=== PATIENT | female | born 1940 | race Caucasian/White ===

== ENCOUNTER 2021-03-19 12:32 | Outpatient (REF) | payer MEDICARE, SELFPAY ==
[2021-03-19 13:53] LABS: MANUAL DIFF FLAG NO
[2021-03-19 13:58] LABS: Basophils Percent Auto 0.5 % (0-2); Eosinophils Absolute Auto 0.1 X10*3/uL (0.0-0.4); Eosinophils Percent Auto 2.4 % (0-4); Hematocrit 41.7 % (37-47); Hemoglobin 14.1 g/dl (12.0-16.0); Imm Gran Abs Auto 0.01 X10*3/uL (0.00-0.03); Imm Gran Pct Auto 0.2 % (0.0-0.4); Lymphocytes Percent Auto 35.7 % (20-40); Mean Corpuscular HGB Conc 33.8 g/dl (31.0-35.0); Mean Corpuscular Hemoglobin 31.1 pg (27.0-33.0); Mean Corpuscular Volume 92.1 fL (80-98); Mean Platelet Volume 11.9 fL (9.4-12.3); Monocytes Absolute Auto 0.5 X10*3/uL (0.1-1.2); Monocytes Percent Auto 9.8 % (2-11); Neutrophils Absolute Auto 2.8 X10*3/uL (2.0-8.3); Neutrophils Percent Auto 51.4 % (45-73); Platelet Count 167 X10*3/uL (160-400); Red Blood Count 4.53 X10*6/uL (4.20-5.50); Red Cell Distribution Width 13.1 % (11.0-16.0); White Blood Count 5.5 X10*3/uL (4.8-10.8)
[2021-03-19 14:06] LABS: Estimated Average Glucose 160 mg/dL; Hemoglobin A1c % 7.2 %
[2021-03-19 14:30] LABS: Alanine Aminotransferase 23 U/L (0-31); Albumin Level 4.4 g/dL (3.5-5.0); Alkaline Phosphatase 89 U/L (39-117); Anion Gap 16 (12-20); Aspartate Amino Transferase 19 U/L (5-31); Bilirubin Total 0.7 mg/dL (0.0-1.0); Blood Urea Nitrogen 12 mg/dL (9-16); Calcium 8.9 mg/dL (8.4-10.2); Carbon Dioxide 23 mmol/L (22-29); Chloride 104 mmol/L (96-108); Cholesterol 263 mg/dL; Estimated Glomerular Filt Rate > 60; Glucose Random 124 mg/dL (60-115); HDL Cholesterol 82 mg/dL; LDL Cholesterol Calculated 165 mg/dl; Potassium 4.7 mmol/L (3.3-5.1); Sodium 138 mmol/L (135-145); Total Protein 7.1 g/dL (6.5-8.0); Triglycerides 84 mg/dL
[2021-03-19 14:52] LABS: Vitamin D 25-OH Total 43.9 ng/mL (>30)
== END 2021-03-19 12:33 | disposition home or self-care (01) ==
LOC: HO.LAB 12:32
PROVIDERS: PCP Internal Medicine; Visit Provider Nurse Practitioner Family
DX: E03.8 Other specified hypothyroidism (principal); I10 Essential (primary) hypertension; E78.5 Hyperlipidemia, unspecified; E55.9 Vitamin D deficiency, unspecified
CPT/HCPCS: 36415; 80053; 80061; 82306; 83036; 83525; 84443; 85025

== ENCOUNTER 2024-09-20 08:40 | Emergency (ER) | payer MEDICARE, SELFPAY ==
--- NOTE | ~2024-09-20 | CT_ITS ---
EXAMINATION: CT ABDOMEN AND PELVIS WITH CONTRAST CLINICAL INFORMATION: Right lower quadrant pain COMPARISON: None available. TECHNIQUE: Multidetector volumetric images were obtained from the superior aspect of the liver through the pubic symphysis following administration 85 mL of Omnipaque 350 intravenous contrast without reported immediate complications. Sagittal and coronal reformatted images were obtained on the technologist's workstation. Oral contrast: No This CT examination was performed using dose optimization techniques as appropriate, variously including the following: *Automated exposure control *Adjustment of mA and/or kV according to patient size (this includes techniques or standardized protocols for targeted exams where dose is matched to indication/reason for exam; i.e. extremities or head) *Use of iterative reconstruction technique DLP: 624 mGy-cm FINDINGS: LUNG BASES: No acute airspace disease in the included lung bases. LIVER, GALLBLADDER, AND BILIARY TREE: Liver measures 18 cm. There is a 1.5 cm hypodensity in the dome of the right hepatic lobe no fully evaluated. The main portal vein and hepatic veins and intrahepatic portion of the IVC are patent. No pericholecystic fluid collection or gallbladder wall thickening. No intrahepatic or extrahepatic biliary ductal dilatation. PANCREAS: No focal pancreatic mass. No peripancreatic fluid collection. No main pancreatic ductal dilatation. There is volume loss with the fatty density in the head and uncinate process. SPLEEN: 9 cm. No focal mass. Small accessory spleen. ADRENAL GLANDS: No nodular lesions KIDNEYS AND URETERS: 2.2 cm exophytic cyst in the lateral midportion/lower junction of the left kidney. No hydronephrosis in either kidney. No gross renal mass. Subcentimeter cystic lesion in the right kidney. BLADDER: Fluid-filled. GASTROINTESTINAL TRACT: Appendix is normal. Abundant stool within the large intestine. Numerous diverticula throughout the left hemicolon. Collapsed appearance of the transverse colon and descending colon. No pericolonic edema pattern. No peripheral enhancing fluid collection, peritoneal cavity. No intestinal obstruction pattern. No ascites. No pneumoperitoneum. Nonspecific mesenteric edema pattern. Hiatal hernia, small volume.. ABDOMINAL WALL: Moderate to large volume fat-containing umbilical/periumbilical hernia. LYMPH NODES: Nonspecific prominent lymph nodes in the mesentery and retroperitoneum. VASCULAR: No aneurysm or dissection, abdominal aorta. Calcified plaques. PELVIC VISCERA: 1 cm cystic lesion in the left adnexa. OSSEOUS STRUCTURES: Multilevel thoracolumbar spondylosis. Last rib-bearing vertebra labeled T12. Grade 1 anterolisthesis L4-5 on a degenerative basis. Osteopenia versus osteoporosis. Degenerative changes in the sacroiliac joints with vacuum phenomenon. No acute fracture. CT/CT abdomen pelvis w IV con IMPRESSION: Fat-containing umbilical periumbilical hernia. Hepatomegaly. Hypodense lesion dome right hepatic lobe. Diverticular disease, left hemicolon. Simple cyst, left kidney. Appendix is normal. Fleischner guidelines were followed. Electronically signed by: Reza Sanon MD 09/20/2024 12:48 PM EST
[2024-09-20 08:45] VITALS: BP 153/55; PULSE 79; RESP 16; TEMP 37; O2SAT 98; BMI 34.0
[2024-09-20 09:03] LABS: MANUAL DIFF FLAG NO
[2024-09-20 09:07] LABS: Basophils Percent Auto 0.4 % (0-2); Eosinophils Percent Auto 0.9 % (0-4); Hemoglobin 13.9 g/dl (12.0-16.0); Imm Gran Abs Auto 0.01 X10*3/uL (0.00-0.03); Imm Gran Pct Auto 0.2 % (0.0-0.4); Lymphocytes Absolute Auto 1.2 X10*3/uL (1.2-4.9); Lymphocytes Percent Auto 26.1 % (20-40); Mean Corpuscular HGB Conc 34.8 g/dl (31.0-35.0); Mean Corpuscular Hemoglobin 31.9 pg (27.0-33.0); Mean Corpuscular Volume 91.7 fL (80.0-98.0); Mean Platelet Volume 11.5 fL (9.4-12.3); Monocytes Absolute Auto 0.4 X10*3/uL (0.1-1.2); Monocytes Percent Auto 8.6 % (2-11); Neutrophils Absolute Auto 2.9 x10*3/uL (2.0-8.3); Neutrophils Percent Auto 63.8 % (45-73); Platelet Count 168 X10*3/uL (160-400); Red Blood Count 4.36 X10*6/uL (4.20-5.50); Red Cell Distribution Width 12.8 % (11.0-16.0); White Blood Count 4.5 X10*3/uL (4.8-10.8)
[2024-09-20 09:17] LABS: Anion Gap 11 (12-20); Blood Urea Nitrogen 17 mg/dL (9-16); Calcium 9.3 mg/dL (8.4-10.2); Carbon Dioxide 27 mmol/L (22-29); Chloride 104 mmol/L (96-108); Creatinine Clr Calc Pharmacy 47.9; Estimated Glomerular Filt Rate > 60; Glucose Random 167 mg/dL (60-115); Potassium 4.2 mmol/L (3.3-5.1); Sodium 138 mmol/L (135-145)
--- NOTE | 2024-09-20 09:43 | ED_ITS ---
HPI - General Adult General Chief complaint: Abdominal Pain Stated complaint: r side pain Time Seen by Provider: 09/20/24 09:43 Source: patient and family (patient's son) Mode of arrival: wheelchair Limitations: no limitations History of Present Illness ED Provider: Piedad Chandler PA-C HPI narrative: Patient is an 83 year old assigned female at a history of HTN presenting to the emergency department today with right lower quadrant abdominal pain and right sided low back pain. Patient states that over the last 2 days she has had right sided low back and abdominal pain. Patient states that it is worse with movement. Patient states that she was tidying her house up before the pain started but she doesn't remember any specific trauma. Patient states that the pain does radiate either to her or from her right low back. Patient denies any dizziness, lightheadedness, nausea, vomiting, fever, chills, blurry vision, double vision, loss of vision, chest pain, difficulty breathing, shortness of breath, night sweats, pain with urination, increased urinary frequency, increased urinary urgency, blood in her urine or stool, syncope or a near syncopal episode, recent trauma or falls, bowel incontinence, bladder incontinence, or any other complaints at this time. Onset (ago): day(s) (2) Location: back, abdomen and right Relieving factors: none Exacerbating factors: movement Associated symptoms: denies other symptoms Treatments prior to arrival: none Related Data Allergies Allergy/AdvReac Type Severity Reaction Status Date / Time NSAIDS (Non-Steroidal Allergy Unknown Verified 09/20/24 09:59 Anti-Inflamma zolpidem [From [facility]BIEN] AdvReac Unknown Intolerance Verified 09/20/24 09:59 Review of Systems 2 Constitutional: Constitutional: Reports no additional constitutional complaints, Denies chills, Denies fever(s) and Denies night sweats Eyes: Eyes: Reports no additional eye complaints, Denies blurry vision, Denies change in vision, Denies diplopia, Denies eye discharge, Denies loss of vision and Denies eye pain ENT: Denies dizziness Cardiovascular: Cardiovascular: Reports no additional cardiovascular complaints, Denies chest pain, Denies lightheadedness, Denies Loss of Consciousness and Denies dyspnea Respiratory: Respiratory: Reports no additional respiratory complaints and Denies dyspnea Gastrointestinal: Gastrointestinal: Reports no additional gastrointestinal complaints, Reports abdominal pain, Denies melena, Denies hematochezia, Denies change in bowel habits and Denies change in stool character Genitourinary: Genitourinary: Denies hematuria, Denies urinary frequency, Denies dysuria, Denies urinary incontinence, Denies urinary hesitancy and Denies urinary urgency Musculoskeletal: Musculoskeletal: Reports no additional musculoskeletal complaints, Reports back pain, Denies numbness and Denies tingling Neurologic: Denies dizziness, Denies loss of vision, Denies numbness and Denies tingling Psychiatric: Psychiatric: Reports no additional psychiatric complaints Endocrine: Endocrine: Reports no additional endocrine complaints Hematologic/Lymphatic: Hematologic/Lymphatic: Reports no additional hematologic/lymphatic complaints Allergic/Immunologic: Allergic/Immunologic: Reports no additional allergic/immunologic complaints PMFSH Past Medical History Attestation statement: The following information was validated with the patient. Source: old records reviewed and nursing notes reviewed Social History Social History Alcohol intake: current Alcohol intake frequency: holidays/special occasions only Smoked in Last 30 Days: No Use of substances other than those prescribed or required for medical reasons: No Substance Use Type: Marijuana Advance Directives: Yes Advance Directives Information Provided: No Advance Directives on File: No Do you have a plan to hurt others: No Plan Physical Exam ED Vital Signs: Vital Signs - 24 hr 09/20/24 08:45 09/20/24 11:03 Temperature 98.6 F 98.9 F Pulse Rate 79 65 Respiratory Rate 16 16 Blood Pressure 153/55 H 170/57 H Pulse Oximetry 98 98 Oxygen Delivery Method Room Air Room Air BMI result Body Mass Index 34.0 Const General: cooperative, no acute distress, alert and awake Nutritional Appearance: well nourished Orientation/consciousness: patient oriented x3 Limitations: no limitations HENMT Head: Yes normal to inspection and Yes atraumatic Ears: hearing grossly normal bilaterally and external ears normal General nose exam: Normal external nose present, no nasal discharge noted and no epistaxis Face and sinus: Yes normal facial exam, No abrasion and No laceration Mouth: Normal oral and palatal mucosa present, no drooling and no muffled voice Eyes General: appearance normal, both eyes and all related structures Periorbital: periorbital findings normal Eyelids: Yes eyelids normal Conjunctivae: conjunctivae normal Pupils: Equal, round and reactive pupils present EOM: EOMs intact bilaterally Neck Neck: Yes normal visual inspection, Yes full ROM and Yes no lymphadenopathy Chest Chest palpation & inspection: normal inspection of the chest Resp Effort & Inspection: normal respiratory effort and able to speak in complete sentences GI Inspection: Yes normal to inspection Palpation (GI): Soft to palpation, not firm, Tenderness to palpation present (GI) in the RLQ and not rigid Neuro General: patient oriented x3 and moves all extremities Cranial nerves: Yes Equal, round and reactive pupils present Cognition (Neuro): normal cognition Extrem General: Yes normal to inspection, Yes full ROM and Yes capillary refill normal Psych Appearance: grossly normal Mental Status: mental status grossly normal Affect: normal affect Attitude: cooperative Thought process: Normal thought process present Thought content: Normal thought content present Insight: Good insight present (Psych) Medications Administered Discontinued Medications Generic Name Dose Route Start Last Admin Trade Name Freq PRN Reason Stop Dose Admin Iohexol 100 ml 09/20/24 11:54 09/20/24 11:55 Iohexol 350 Mg/Ml 100 Ml Infus..Btl IV 09/20/24 11:55 85 ml ONCE ONE Administration Morphine Sulfate 4 mg 09/20/24 09:48 09/20/24 10:09 Morphine Sulfate 4 Mg/Ml Cartridge IVPUSH 09/20/24 09:49 4 mg ONCE ONE Administration Protocol Ondansetron HCl 4 mg 09/20/24 09:48 09/20/24 10:09 Ondansetron Hcl 4 Mg/2 Ml Vial IVPUSH 09/20/24 09:49 4 mg ONCE ONE Administration Medical Decision Making Medical Decision Making [facility] Narrative: Patient is an 83 year old assigned female at a history of HTN presenting to the emergency department today with right lower quadrant abdominal pain and right sided low back pain. Patient's physical exam was as noted in the physical exam portion of this note. Patient's blood work was unremarkable. Patient's urine showed no acute process. Patient's abdomen/pelvis CT showed no acute process but did show some incidental findings as well as multilevel degenerative changes of the spine. Given the patient's pain is worsening with certain movements / positioning and her work up is negative for any acute process - I am suspicious this is secondary to her extensive degenerative changes of the spine. I explained my physical exam findings as well as all test results to the patient. I answered all questions asked by the patient. Patient received IV Morphine which, upon re-evaluation, she stated it helped her pain significantly. I stressed the importance of the patient taking her medication as directed (either prescribed or as the over the counter packaging recommends). I stressed the importance of the patient following up with her primary care provider and a payroll accounting specialist. I stressed the importance of the patient returning to the emergency department immediately if her symptoms were to worsen or if she were to develop any dizziness, shortness of breath, difficulty breathing, chest pain, blurry vision, loss of vision, nausea, vomiting, abdominal pain, fever, chills, back pain, or any other complaints. Patient verbalized agreement and understanding with this treatment plan and discharge. Differential Diagnosis Differential Diagnoses: The differential diagnosis associated with the presentation includes Low back pain Abdominal pain Appendicitis Diverticulitis Admission/Observation Consideration of admission/observation: Escalation of care including admission/observation considered Patient would have been admitted to the hospital had her work up had any findings where hospital admission was appropriate and her clinical presentation warranted hospital admission. Lab Data [facility] Lab Attestation statement: I reviewed the patient's lab results. My interpretation of these results are in the MDM Rationale portion of this note. 09/20/24 09:01 09/20/24 09:01 Labs: Lab Results 09/20/24 09/20/24 Range/Units 09:01 13:43 WBC 4.5 L (4.8-10.8) X10*3/uL RBC 4.36 (4.20-5.50) X10*6/uL Hgb 13.9 (12.0-16.0) g/dl Hct 40.0 (37.0-47.0) % MCV 91.7 (80.0-98.0) fL MCH 31.9 (27.0-33.0) pg MCHC 34.8 (31.0-35.0) g/dl RDW 12.8 (11.0-16.0) % Plt Count 168 (160-400) X10*3/uL MPV 11.5 (9.4-12.3) fL Immature Gran % (Auto) 0.2 (0.0-0.4) % Neut % (Auto) 63.8 (45-73) % Lymph % (Auto) 26.1 (20-40) % [place] % (Auto) 8.6 (2-11) % Eos % (Auto) 0.9 (0-4) % Baso % (Auto) 0.4 (0-2) % Lymph # (Auto) 1.2 (1.2-4.9) X10*3/uL [place] # (Auto) 0.4 (0.1-1.2) X10*3/uL Eos # (Auto) 0.0 (0.0-0.4) X10*3/uL Baso # (Auto) 0.0 (0.0-0.2) X10*3/uL Abs Immat Gran (auto) 0.01 (0.00-0.03) X10*3/uL Absolute Neuts (auto) 2.9 (2.0-8.3) x10*3/uL Absolute Nucleated RBC 0.000 (0.0-0.012) X10*3/uL Nucleated RBC % (auto) 0.0 (0.0-0.2) /100WBC Sodium 138 (135-145) mmol/L Potassium 4.2 (3.3-5.1) mmol/L Chloride 104 (96-108) mmol/L Carbon Dioxide 27 (22-29) mmol/L Anion Gap 11 L (12-20) BUN 17 H (9-16) mg/dL Creatinine 0.86 (0.5-1.4) mg/dL Estim Creat Clear Calc 47.9 Estimated GFR > 60 Random Glucose 167 H (60-115) mg/dL Calcium 9.3 (8.4-10.2) mg/dL Total Bilirubin 0.8 (0.0-1.0) mg/dL Direct Bilirubin 0.2 (0.0-0.5) mg/dL AST 23 (5-31) U/L ALT 22 (0-31) U/L Alkaline Phosphatase 83 (39-117) U/L Total Protein 6.8 (6.5-8.0) g/dL Albumin 4.1 (3.5-5.0) g/dL Lipase 13 (8-78) U/L Urine Color Yellow Urine Appearance Clear Urine pH 7.5 (5.0-9.0) Ur Specific [place] >= 1.030 H (1.005-1.025) Urine Protein Negative (Neg-Trace) mg/dL Urine Glucose (UA) Negative (Negative) mg/dL Urine Ketones Negative (Negative) mg/dL Urine Blood Trace H (Negative) Urine Nitrite Negative (Negative) Ur Leukocyte Esterase Negative (Negative) Urine RBC 0-2 (0-2) /HPF Urine WBC 0-5 (0-5) /HPF Ur Squamous Epith Cells 3-5 (0-2) /HPF Urine Bacteria Trace (None Seen) Hyaline Casts 0-2 (0-2) /LPF Independent Interpretation I performed an independent interpretation of an: CT Scan Interpretation: My interpretation is in agreement with the radiologist's impression of this imaging study. L EXAMINATION: CT ABDOMEN AND PELVIS WITH CONTRAST CLINICAL INFORMATION: Right lower quadrant pain COMPARISON: None available. TECHNIQUE: Multidetector volumetric images were obtained from the superior aspect of the liver through the pubic symphysis following administration 85 mL of Omnipaque 350 intravenous contrast without reported immediate complications. Sagittal and coronal reformatted images were obtained on the technologist's workstation. Oral contrast: No This CT examination was performed using dose optimization techniques as appropriate, variously including the following: *Automated exposure control *Adjustment of mA and/or kV according to patient size (this includes techniques or standardized protocols for targeted exams where dose is matched to indication/reason for exam; i.e. extremities or head) *Use of iterative reconstruction technique DLP: 624 mGy-cm FINDINGS: LUNG BASES: No acute airspace disease in the included lung bases. LIVER, GALLBLADDER, AND BILIARY TREE: Liver measures 18 cm. There is a 1.5 cm hypodensity in the dome of the right hepatic lobe no fully evaluated. The main portal vein and hepatic veins and intrahepatic portion of the IVC are patent. No pericholecystic fluid collection or gallbladder wall thickening. No intrahepatic or extrahepatic biliary ductal dilatation. PANCREAS: No focal pancreatic mass. No peripancreatic fluid collection. No main pancreatic ductal dilatation. There is volume loss with the fatty density in the head and uncinate process. SPLEEN: 9 cm. No focal mass. Small accessory spleen. ADRENAL GLANDS: No nodular lesions KIDNEYS AND URETERS: 2.2 cm exophytic cyst in the lateral midportion/lower junction of the left kidney. No hydronephrosis in either kidney. No gross renal mass. Subcentimeter cystic lesion in the right kidney. BLADDER: Fluid-filled. GASTROINTESTINAL TRACT: Appendix is normal. Abundant stool within the large intestine. Numerous diverticula throughout the left hemicolon. Collapsed appearance of the transverse colon and descending colon. No pericolonic edema pattern. No peripheral enhancing fluid collection, peritoneal cavity. No intestinal obstruction pattern. No ascites. No pneumoperitoneum. Nonspecific mesenteric edema pattern. Hiatal hernia, small volume. ABDOMINAL WALL: Moderate to large volume fat-containing umbilical/periumbilical hernia. LYMPH NODES: Nonspecific prominent lymph nodes in the mesentery and retroperitoneum. VASCULAR: No aneurysm or dissection, abdominal aorta. Calcified plaques. PELVIC VISCERA: 1 cm cystic lesion in the left adnexa. OSSEOUS STRUCTURES: Multilevel thoracolumbar spondylosis. Last rib-bearing vertebra labeled T12. Grade 1 anterolisthesis L4-5 on a degenerative basis. Osteopenia versus osteoporosis. Degenerative changes in the sacroiliac joints with vacuum phenomenon. No acute fracture. CT/CT abdomen pelvis w IV con IMPRESSION: Fat-containing umbilical periumbilical hernia. Hepatomegaly. Hypodense lesion dome right hepatic lobe. Diverticular disease, left hemicolon. Simple cyst, left kidney. Appendix is normal. Fleischner guidelines were followed. Electronically signed by: Reza Sanon MD 09/20/2024 12:48 PM [facility] Dictated By: Reza Alatorre MD Signed By: Electronically signed by Reza Boyer MD 09/20/24 1248 Radiology Impression Discussion of test interpretation with radiology: I have reviewed the radiologist's reading. Independent Historian Clinical information obtained from an independent historian. History obtained from or confirmed by: Other (patient's son provided additional history and confirmed the history provided by the patient.) Critical Care Time Critical Care Time Critical Care Time: Yes Total Critical Care Time: 34 Attestation: I spent 34 minutes of Critical Care Time with this patient. This does not include time spent on separately reported billable procedures. Discharge Plan Discharge Clinical Impression: Low back pain, Abdominal pain Patient Disposition: Home, Self-Care Instructions: Acute Low Back Pain (ED), Abdominal Pain (ED) Additional Instructions: Your work up today was reassuring that you have no emergent process going on. Your CT scan showed no acute process but did show a hypodense lesion in the right hepatic (liver) dome. This is an incidental finding that should be followed up on by your primary care provider. Follow up with your primary care provider. Return to the emergency department immediately if your symptoms worsen or if you develop any dizziness, shortness of breath, difficulty breathing, chest pain, blurry vision, loss of vision, nausea, vomiting, abdominal pain, fever, chills, back pain, or any other complaints. Please see the information below about our Patient Portal. If you are not yet enrolled in the [facility] Patient Portal, you will receive an enrollment email invitation following your visit to any [facility] setting. You may also self-enroll in the Patient Portal by visiting our website: [email or web address] The following information is required to access the Patient Portal: - Your [facility] Medical Record Number - Your personal home email address (must match what is in your electronic medical record, Registration staff can assist with this) - Name - Date of Capabilities of the Patient Portal: - Message some providers - View upcoming appointments - Access your health summary, medical history, and visit history - View current conditions and allergies - View procedure and lab results - View your medications, including guidelines, side effects, and precautions - Complete pre-appointment questionnaires requested by your provider - Ready summary reports of your office visits and procedures To access the Patient Portal Mobile [employer]ha, follow these directions: - Search [employer] in the Keesha Store or Google Play Store - Download the Keesha - Search for [facility] - Enter your login/password Referrals: [facility] [Provider Group] (Call to establish and follow up with a payroll accounting specialist. ) [facility] [Provider Group] (Call to establish and follow up with an orthopedist. ) Tim Fontana MD [Primary Care Provider] - Print Language: Citizen Of [place]
[2024-09-20 10:02] LABS: Alanine Aminotransferase 22 U/L (0-31); Albumin Level 4.1 g/dL (3.5-5.0); Alkaline Phosphatase 83 U/L (39-117); Aspartate Amino Transferase 23 U/L (5-31); Bilirubin Direct 0.2 mg/dL (0.0-0.5); Bilirubin Total 0.8 mg/dL (0.0-1.0); Lipase 13 U/L (8-78); Total Protein 6.8 g/dL (6.5-8.0)
[2024-09-20] MEDS: Morphine Sulfate 4 MG/ML CARTRIDGE IVPUSH (10:09)
[2024-09-20] MEDS: ondansetron HCL 4 MG/2 ML VIAL IVPUSH (10:09)
[2024-09-20 11:03] VITALS: BP 170/57; PULSE 65; RESP 16; TEMP 37.2; O2SAT 98
[2024-09-20] MEDS: iohexoL 350 MG/ML 100 ML INFUS..BTL IV (11:55)
[2024-09-20 13:51] LABS: Appearance Urine Clear; Color Urine Yellow; Glucose Urine UA Negative (Negative); Leukocyte Esterase Urine Negative (Negative); Nitrite Urine Negative (Negative); PH 7.5 (5.0-9.0); Specific Gravity - Urine >= 1.030 (1.005-1.025); UMIC TRIGGER UACC YES; Urine Blood Trace (Negative); Urine Ketones Negative (Negative); Urine Protein Negative (Neg-Trace)
[2024-09-20 13:54] LABS: Bacteria Urine Trace (None Seen); Hyaline Casts Urine 0-2 /LPF (0-2); RBC Urine 0-2 /HPF (0-2); WBC Urine 0-5 /HPF (0-5)
[2024-09-20 14:51] VITALS: BP 153/59; PULSE 75; RESP 16; TEMP 37.2; O2SAT 97
--- NOTE | 2024-09-20 14:53 | PC.NURSE ---
called pt son to pick pt up
--- OUTSIDE RECORDS SUMMARY | 2024-09-24 13:00 | XMS_ITS ---
Author Organization [facility] Address [address] [place] [address] Care Team Providers Care Barrel Inspector Tight Name Role Phone GUSTAVO MUSE Unavailable [phone] REASON FOR VISIT cancellation Encounters Encounter Location Date Provider Diagnosis [address] [place] [id number] 08/06/2024 GUSTAVO MUSE PLAN OF TREATMENT Next Appt Details Provider Name:GUSTAVO MUSE, 10/04/2024 10:45:00 AM, [address], [place], [id number], Progress Notes * ANA BIRD EDOB:1940 (83 yo F)Acc No.[id number]:08/06/2024 Patient:??ANA BIRD :1940?Age:83 Y?Sex:Fe male Address:[address] [place] [address] [place] [address] * true * Date:??
--- OUTSIDE RECORDS SUMMARY | 2024-09-24 13:00 | XMS_ITS | Patient Health Record ---
Author Organization [facility] Address [address] [place] [address] Care Team Providers Care Email Producer Name Role Phone GUSTAVO MUSE Unavailable [phone] ALLERGIES Allergen (clinical drug ingredient) Drug/Non Drug Allergy documented on EMR Reaction Allergy Type Onset Date Status aspirin Aspirin Unknown Drug Allergy Active RESULTS Component Value Reference Range Notes TSH Reviewed date:12/10/2023 03:36:05 PM Interpretation: Performing Lab:NL2, [employer] [facility] Donna Bai Notes/Report: FASTING:NO PATIENT UNABLE TO VOID; ADVISED TO RETURN FOR COLLECTION. FASTING: NO TSH 1.32 0.40-4.50 mIU/L CBC (INCLUDES DIFF/PLT) Reviewed date:12/10/2023 03:36:05 PM Interpretation: Performing Lab:NL2, [employer] [facility] Donna Bai Notes/Report: FASTING:NO PATIENT UNABLE TO VOID; ADVISED TO RETURN FOR COLLECTION. FASTING: NO WHITE BLOOD CELL COUNT 6.3 3.8-10.8 Thousand/ uL RED BLOOD CELL COUNT 4.74 3.80-5.10 Million/uL HEMOGLOBIN 14.8 11.7-15.5 g/dL HEMATOCRIT 44.2 35.0-45.0 % MCV 93.2 80.0-100.0 fL MCH 31.2 27.0-33.0 pg MCHC 33.5 32.0-36.0 g/dL RDW 12.8 11.0-15.0 % PLATELET COUNT 192 140-400 Thousand/uL MPV 12.0 7.5-12.5 fL ABSOLUTE NEUTROPHILS 4057 1837-6255 cells/uL ABSOLUTE LYMPHOCYTES 9781 900-0739 cells/uL ABSOLUTE MONOCYTES 725 200-950 cells/uL ABSOLUTE EOSINOPHILS 82 15-500 cells/uL ABSOLUTE BASOPHILS 32 0-200 cells/uL NEUTROPHILS 64.4 LYMPHOCYTES 22.3 MONOCYTES 11.5 EOSINOPHILS 1.3 BASOPHILS 0.5 COMPREHENSIVE METABOLIC PANE L Reviewed date:12/10/2023 03:36:05 PM Interpretation: Performing Lab:2, [employer] [facility] Donna Bai Notes/Report: FASTING:NO PATIENT UNABLE TO VOID; ADVISED TO RETURN FOR COLLECTION. FASTING: NO GLUCOSE 136 65-139 mg/dL Non-fasting reference interval UREA NITROGEN (BUN) 17 7-25 mg/dL CREATININE 0.87 0.60-0.95 mg/dL EGFR 66 > OR = 60 mL/min/1.73m2 BUN/CREATININE RATIO SEE NOTE: 6-22 (calc) Not Reported: BUN and Creatinine are within reference range. SODIUM 138 135-146 mmol/L POTASSIUM 4.5 3.5-5.3 mmol/L CHLORIDE 100 98-110 mmol/L CARBON DIOXIDE 30 20-32 mmol/L CALCIUM 10.2 8.6-10.4 mg/dL PROTEIN, TOTAL 7.2 6.1-8.1 g/dL ALBUMIN 4.4 3.6-5.1 g/dL GLOBULIN 2.8 1.9-3.7 g/dL (calc) ALBUMIN/GLOBULIN RATIO 1.6 1.0-2.5 (calc) BILIRUBIN, TOTAL 0.7 0.2-1.2 mg/dL ALKALINE PHOSPHATASE 80 37-153 U/L AST 16 10-35 U/L ALT 18 6-29 U/L LIPID PANEL, STANDARD Reviewed date:12/11/2023 09:48:19 AM Interpretation: Performing Lab:[employer], [employer] [facility] Donna Bai Notes/Report: FASTING:NO PATIENT UNABLE TO VOID; ADVISED TO RETURN FOR COLLECTION. FASTING: NO CHOLESTEROL, TOTAL 247 <200 mg/dL HDL CHOLESTEROL 91 > OR = 50 mg/dL TRIGLYCERIDES 115 <150 mg/dL LDL-CHOLESTEROL 133 Reference range: <100 Desirable range <100 mg/dL for primary prevention; <70 mg/dL for patients with CHD or diabetic patients with > or = 2 CHD risk factors. LDL-C is now calculated using the Abdifatah calculation, which is a validated novel method providing better accuracy than the Friedewald equation in the estimation of LDL-C. Rhett SOFIA et al. GURWINDER. 2013;310(19): 3116-8501 (http://education.Mobile Iron.OggiFinogi/faq/FAQ16 4) CHOL/HDLC RATIO 2.7 <5.0 (calc) NON HDL CHOLESTEROL 156 <130 mg/dL (calc) For patients with diabetes plus 1 major ASCVD risk factor, treating to a non-HDL-C goal of <100 mg/dL (LDL-C of <70 mg/dL) is considered a therapeutic option. REASON FOR REFERRAL Reason M17.9 Osteoarthritis of knee, unspecified Diagnosis 1 Osteoarthritis of kn ee, unspecified (M17.9) Referral Organization [facility] Referring Provider First Name GUSTAVO Referring Provider Last Name ALMAZ Referring Provider Speciality Internal M edicine Referred Provider Lencho, Ortho Referred Provider Specialty Orthopedic S urgery General Notes [facility], [address], [place] [address], [place] [address] Clinical Notes Margoth English 03:45:11 PM >, Maylin Guaman 05/26/2024 03:09:17 PM > [facility] has requested that we send their referral form along with the referral so the patient can be scheduled, RAMIN ROBERSON 06/03/2024 10:47:10 AM >sent task to DA manley KIERSTEN 06/17/2024 04:29:44 PM >pt can call and book appt Referral Priority Routine MEDICATIONS Medication SIG (Take, Route, Frequency, Duration) Notes Start Date End Date Status Losartan Potassium 25 MG 1 tablet Orally Once a day for 90 days Active Furosemide 20 MG TAKE 1 TABLET BY KAYLEE TH EVERY DAY for 90 Active Meloxicam 7.5 MG TAKE 1 TABLET BY KAYLEE TH EVERY DAY FOR 30 DAYS for 30 Active LORazepam 0.5 MG 1 tablet at bedtime as needed Orally Once a day for 30 days 07/23/2024 Active Vitamin D-3 125 MCG (5000 UT) as directed Orally Active Levothyroxine Sodium 100 MCG TAKE 1 TABL ET BY MOUTH EVERY DAY IN THE MORNING ON EMPTY STOMACH for 90 Active Senna 8.6 MG 2 tablets at bedtime as needed Orally Once a day for 30 days Active SOCIAL HISTORY Tobacco Use: Social History Observation Description Date Details (start date - stop date) Former Smoker NA - NA Sex Assigned At : Social History Observation Description Sex Assigned At Unknown Tobacco Use/Smoking Question Answer Notes Are you a former smoker PROBLEMS Problem Type ICD Code Onset Dates Problem Status W/U Status Risk SNOMED Code Notes Problem Other specified hypothyroidism (E03.8) Active confirmed Hypothyroidism (44125531) Problem Hypothyroidism, unspecified (E03.9) Active confirmed Hypothyroidism (48909461) Problem Hyperlipidemia, unspecified (E78.5) Active confirmed Hyperlipidemia (29421112) Problem Constipation, unspecified (K59.00) Active confirmed Constipation (62403392) Problem Osteoarthritis of knee, unspecified (M17.9) Active confirmed Osteoarthritis of knee (997848323) Problem Type 2 diabetes mellitus with hyperglycemia (E11.65) Active confirmed Hyperglycemia d ue to type 2 diabetes mellitus (777440862717422) Problem Essential hypertension (I10) Active confirmed Essential hypertension (80739972) Problem Hyperlipidemia, unspecified hyperlipidemia type (E78.5) Active confirmed 08861654 Problem Acquired hypothyroidism (E03.9) Active confirmed 873112091 Problem Vitamin D deficiency (E55.9) Active confirmed Vitamin D deficiency (95133288) Problem Dyslipidemia (E78.5) Active confirmed Dyslipidemia (366430825) Problem 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) Active confirmed Disorder due to type 2 diabetes mellitus (853095183) Problem Hyperthyroidism (E05.90) Active confirmed Hyperthyroidism (17982549) Problem Dry eye (H04.129) Active confirmed Tear film insufficiency (83569810) VITAL SIGNS Heart Rate 81 /min 04/12/2024 Oximetry 99 % 04/12/2024 Blood pressure diastolic 88 mm Hg 04/12/2024 Height 60 in 04/12/2024 Blood pressure systolic 140 mm Hg 04/12/2024 Weight 196.6 lbs 04/12/2024 BMI 38.39 kg/m2 04/12/2024 Encounters Encounter Location Date Provider Diagnosis [facility] [address] [place] [address] 11/10/[address] [facility] [address] [place] [address] 12/08/2023 TALAL MUSE Essential hypertensi on I10 ; Hyperlipidemia, unspecified E78.5 ; Osteoarthritis of knee, unspecified M17.9 ; Type 2 diabetes mellitus with hyperglycemia E11.65 ; Hypothyroid E03.9 and Adult general medical exam Z00.[address] [facility] [address] [place] [address] 03/08/2024 TALAL MUSE Essential hypertensi on I10 ; Hyperlipidemia, unspecified E78.5 ; Osteoarthritis of knee, unspecified M17.9 and Type 2 diabetes mellitus with hyperglycemia E11.[address] [facility] [address] [place] [address] 04/12/2024 TALAL MUSE Essential hypertensi on I10 ; Swelling R60.9 and Osteoarthritis of knee, unspecified M17.[address] [place] [address] 11/10/[address] [place] [address] 12/08/2023 [address] [facility] [address] [place] [address] 03/08/2024 [address] [facility] [address] [place] [address] 03/19/2024 [address] [facility] [address] [place] [address] 04/20/2024 TALAL MUSE Essential hypertensi on I10 [facility] [address] [place] [address] 06/03/2024 [address] [facility] [address] [place] [address] 07/22/2024 TALAL MUSE [address] [place] [address] 08/06/2024 [address] [facility] [address] [place] [address] 09/08/2024 TALAL MUSE ASSESSMENTS Encounter Date Diagnosis Assessment Notes Treatment Notes Treatment Clinical Notes 03/08/2024 Hyperlipidemia, unspecified (ICD-10 - E78.5) 04/12/2024 Essential hypertension (ICD-10 - I10) 04/12/2024 Swelling (ICD-10 - R60.9) 12/08/2023 Hyperlipidemia, unspecified (ICD-10 - E78.5) 03/08/2024 Essential hypertension (ICD-10 - I10) 04/20/2024 Essential hypertension (ICD-10 - I10) 12/08/2023 Essential hypertension (ICD-10 - I10) 04/12/2024 Osteoarthritis of knee, unspecified (ICD-10 - M17.9) 12/08/2023 Osteoarthritis of knee, unspecified (ICD-10 - M17.9) 03/08/2024 Osteoarthritis of knee, unspecified (ICD-10 - M17.9) 03/08/2024 Type 2 diabetes mellitus with hyperglycemia (ICD-10 - E11.65) 12/08/2023 Type 2 diabetes mellitus with hyperglycemia (ICD-10 - E11.65) 12/08/2023 Hypothyroid (ICD-10 - E03.9) 12/08/2023 Adult general medica l exam (ICD-10 - Z00.00) PLAN OF TREATMENT Pending Test Test Name Order Date X ray : Knee, left 2 views 03/25/2022 X ray : Knee, right 2 views 03/25/2022 Hemoglobin A1c 02/14/2021 TSH 02/14/2021 Insulin, Fasting 02/14/2021 Lipid Panel 02/14/2021 Comp. Metabolic Panel (14) 02/14/2021 CBC 02/14/2021 EKG 12/02/2022 25OH VITAMIN D 02/14/2021 BASIC METABOLIC PANEL 04/18/2021 HEMOGLOBIN A1C 04/18/2021 LIPID PANEL 04/18/2021 TSH 04/18/2021 LIPID PANEL, STANDARD 08/05/2022 LIPID PANEL, STANDARD 12/21/2021 COMPREHENSIVE METABOLIC PANEL 12/21/2021 COMPREHENSIVE METABOLIC PANEL 08/05/2022 COMPREHENSIVE METABOLIC PANEL 12/02/2022 CBC (INCLUDES DIFF/PLT) 12/02/2022 CBC (INCLUDES DIFF/PLT) 08/05/2022 CBC (INCLUDES DIFF/PLT) 12/21/2021 URINALYSIS, COMPLETE 12/21/2021 URINALYSIS, COMPLETE 08/05/2022 URINALYSIS, COMPLETE 12/08/2023 URINALYSIS, COMPLETE 12/02/2022 HEMOGLOBIN A1c 08/05/2022 HEMOGLOBIN A1c 12/21/2021 T4 (THYROXINE), TOTAL 12/02/2022 TSH 12/02/2022 TSH 12/21/2021 VITAMIN D,25-OH,TOTAL,IA 12/02/2022 Next Appt Details Provider Name:GUSTAVO MUSE, 10/04/2024 10:45:00 AM, [address], [place], [address], Insurance Providers Payer Name Payer Address Payer Phone Subscriber Number Group Number Insured Name Patient Relationship to Insured Coverage Start Date Coverage End Date [employer] Preferred [id number] [place] [id number] ANA BIRD Self - patient is the insured 0 MEDICAL (GENERAL) HISTORY Medical History History ICD Code Hypothyroidism (acquired) E03.9 Hypertension, unspecified type I10 Anxiety F41.9 carpal tunnel syndrome hyperlipidemia Surgical History Surgery Date(Month/Year) breast reduction
--- OUTSIDE RECORDS SUMMARY | 2024-09-24 13:00 | XMS_ITS ---
Author Organization [facility] Address [address] [place] [address] Care Team Providers Care Assistant Spa Director Name Role Phone GUSTAVO MUSE Unavailable [phone] REASON FOR VISIT Lorazapam MEDICATIONS Medication SIG (Take, Route, Fr equency, Duration) Notes Start Date End Date Status LORazepam 0.5 MG 1 tablet at bedtime as needed Orally Once a day for 30 days 07/23/2024 Ac tive Encounters Encounter Location Date Provider Diagnosis [facility] [address] [facility] [place] [address] 07/22/2024 GUSTAVO MUSE PLAN OF TREATMENT Medication Medication Name Sig Start Date Stop Date Notes LORazepam 0.5 MG 1 tablet at bedtime as needed Orally Once a day for 30 days 07/23/2024 Next Appt Details Provider Name:GUSTAVO MUSE, 10/04/2024 10:45:00 AM, [address] [place], [address], Progress Notes * ANA BIRD EDOB:1940 (83 yo F)Acc No.[id number]:07/22/2024 Patient:??ANA BIRD :1940?Age:83 Y?Sex:Fe male Address:[address] [place] [address] [place] [address] * Refills?? Start LORazepam Tablet, 0.5 MG, Orally, 15 Tablet, 1 tablet at bedtime as needed, Once a day, 30 days, Refills=0 * true * Date:??
--- OUTSIDE RECORDS SUMMARY | 2024-09-24 13:00 | XMS_ITS ---
Author Organization [facility] Address [address] [place] [address] Care Team Providers Care Special Education Administrator Name Role Phone GUSTAVO MUSE Unavailable [phone] REASON FOR VISIT Losartan MEDICATIONS Medication SIG (Take, Route, Frequency, Duration) Notes Start Date End Date Status Losartan Potassium 25 MG 1 tablet Orally Once a day for 90 days Active Encounters Encounter Location Date Provider Diagnosis [facility] [address] [place] [address] 09/08/2024 GUSTAVO MUSE PLAN OF TREATMENT Medication Medication Name Sig Start Date Stop Date Notes Losartan Potassium 25 MG 1 tablet Orally Once a day for 90 days Next Appt Details Provider Name:GUSTAVO MUSE, 10/04/2024 10:45:00 AM, [address] [place], [address], Progress Notes * ANA BIRD EDOB:1940 (83 yo F)Acc No.[id number]:09/08/2024 Patient:??ANA BIRD :1940?Age:83 Y?Sex:Fe male Address:[place] [address] * Refills?? Refill Losartan Potassium Tablet, 25 MG, Orally, 90 Tablet, 1 tablet, Once a day, 90 days, Refills=3 * true * Date:??
== END 2024-09-20 15:08 | disposition home or self-care (01) ==
PROVIDERS: Physician Assistant Medical; Emergency Provider Emergency Medicine Emergency Medical Services; PCP Internal Medicine
DX: R10.31 Right lower quadrant pain (principal); M54.50 Low back pain, unspecified; I10 Essential (primary) hypertension
CPT/HCPCS: 36415; 74177; 80048; 80076; 81001; 83690; 85025; 96374; 96375; 99284; J2270; J2405; Q9967

== ENCOUNTER → 2024-09-20 09:48 | Outpatient (BNV) | payer MEDICARE, SELFPAY | PROVIDERS: Emergency Provider Emergency Medicine Emergency Medical Services; PCP Internal Medicine; Visit Provider Radiology Diagnostic Radiology | DX: R10.30 Lower abdominal pain, unspecified (principal) | CPT/HCPCS: 74177 ==

== ENCOUNTER 2024-11-24 14:28 | Outpatient (REF) | payer MEDICARE, SELFPAY ==
--- NOTE | ~2024-11-24 | US_ITS ---
EXAMINATION: US TRIPLEX UPPER EXTREMITY, RIGHT CLINICAL INFORMATION: Right arm pain. COMPARISON: None available. TECHNIQUE: Color-flow triplex imaging with spectral analysis and compression Doppler was performed on the right upper extremity. FINDINGS: The right internal jugular, subclavian, and axillary veins are patent and free of thrombus. The imaged segment of the right brachiocephalic vein is patent. Spectral doppler waveforms are normal. The brachial, basilic, cephalic, radial, and ulnar veins are patent and compressible. US/US venous duplex UE RT IMPRESSION: No evidence of deep venous thrombosis involving the right upper extremity. Electronically signed by: Shmuel Arias MD 11/24/2024 03:41 PM PRIYA
--- NOTE | ~2024-11-24 | XR_ITS ---
EXAMINATION: XR SHOULDER, RIGHT CLINICAL INFORMATION: right shoulder pain COMPARISON: None available. TECHNIQUE: Three views of the right shoulder. FINDINGS: No fracture, dislocation, or suspicious bone lesion. Severe glenohumeral joint arthritis with hpgn-ju-dyeg appearance, mild glenoid remodeling, and large undersurface osteophytes of the humeral head. Calcifications in the glenohumeral joint recess, suspect for loose bodies. Mild arthritis in the AC joint. Neutral lateral acromion. There is a moderate size subacromial spur. Mild narrowing of the subacromial space. Remainder of the imaged bony and soft tissue structures appear normal. XR/XR shoulder RT min 2V IMPRESSION: 1. No acute findings right shoulder. 2. Severe degenerative arthritis glenohumeral joint. Electronically signed by: Shmuel Arias MD 11/24/2024 03:14 PM PRIYA RYAN
== END 2024-11-24 14:29 | disposition home or self-care (01) ==
LOC: HO.US 14:28
PROVIDERS: PCP Internal Medicine
DX: M19.011 Primary osteoarthritis, right shoulder (principal); M25.511 Pain in right shoulder; M79.601 Pain in right arm
CPT/HCPCS: 73030; 93971

== ENCOUNTER → 2024-11-24 15:01 | Outpatient (BNV) | payer MEDICARE, SELFPAY | PROVIDERS: PCP Internal Medicine; Visit Provider Radiology Diagnostic Radiology | DX: M25.511 Pain in right shoulder (principal); M79.601 Pain in right arm | CPT/HCPCS: 73030; 93971 ==

== ENCOUNTER 2025-02-07 13:57 | Outpatient (AMB) | payer MEDICARE, SELFPAY ==
--- NOTE | 2025-02-07 14:09 | MHC.OFFVIS ---
Vital Signs 02/07/25 14:18 Height 5 ft 1 in Weight 180 lb BMI 34.0 Intake Visit Reasons: [employer]-Right RTC tear/GHJ OA Intake Note: Morelia is an 84 year old right hand dominant female who presents today as a new patient for evaluation of a right RTC tear and GHJ OA. Patient reports numbness from the shoulder blade to the right hand. Patient complains of limited ROM. Patient states she has tried heat and OTC pain medications. Denies any known injuries or surgeries to the right shoulder. Allergies NSAIDS (Non-Steroidal Anti-Inflamma Allergy (Verified 02/07/25 14:17) Unknown zolpidem [From AMBIEN] Adverse Reaction (Unknown, Verified 02/07/25 14:17) Intolerance HPI HPI [employer]-Right RTC tear/GHJ OA: Details: Morelia is an 84 year old right hand dominant female who presents today as a new patient for evaluation of a right RTC tear and GHJ OA. Patient reports numbness from the shoulder blade to the right hand. Patient complains of limited ROM. Patient states she has tried heat and OTC pain medications. Denies any known injuries or surgeries to the right shoulder. She denies shoulder pain. She states she was initially concerned about a lump under her arm but her PCP was not concerned and sent her to Ortho regarding her shoulder arthritis. She has known OA of her shoulder but does not have shoulder pain. She describes tingling running down the medial aspect of her arm into the medial forearm and hand. [facility] Social History Alcohol intake: current Alcohol intake frequency: holidays/special occasions only Substance Use Type: Marijuana Physical Exam Vital Signs: BMI result Body Mass Index 34.0 Extrem Other: Shoulder ROM restricted in ER to 15 deg. She can abduct to 80 deg without pain. Assessment & Plan Assessment & Plan (1) Numbness and tingling: Code(s): R20.0 - Anesthesia of skin; R20.2 - Paresthesia of skin Category: Medical Plan: She has underarm discomfort and tingling and burning in the medial upper arm and forearm. I ordered an EMG/NCV and we will discuss results when they are available. In the meantime I have recommended she consult with her PCP for any issues relating to axillary nodes. (2) Shoulder arthritis: Code(s): M19.019 - Primary osteoarthritis, unspecified shoulder Category: Medical Plan: This is an 84 yo F with shoulder arthritis. She has minimal pain and her primary objective problem is loss of external rotation which is to be expected given her radiographs. I don't recommend treatment for her shoulder as it is not bothering her. Coding Level of Care Code New Pt Level 4 (41565) Diagnoses Numbness and tingling R20.0; R20.2 Shoulder arthritis M19.019
[2025-02-07 14:18] VITALS: BMI 34.0
--- OUTSIDE RECORDS SUMMARY | 2025-02-07 16:44 | XMS_ITS ---
Author Organization [facility] Address [address] [place] [address] Care Team Providers Care Minister Assistant Name Role Phone GUSTAVO MUSE Unavailable [phone] AUNG YI Unavailable [phone] REASON FOR VISIT refill MEDICATIONS Medication SIG (Take, Route, Fr equency, Duration) Notes Start Date End Date Status Furosemide 20 MG TAKE 1 TABLET BY KAYLEE TH EVERY DAY for 90 days Active Encounters Encounter Location Date Provider Diagnosis [address] [address] 01/10/2025 AUNG YI PLAN OF TREATMENT Medication Medication Name Sig Start Date Stop Date Notes Furosemide 20 MG TAKE 1 TABLET BY KAYLEE TH EVERY DAY for 90 days Next Appt Details Provider Name:AUNG YI, 02:15:00 PM, [address] [facility], [place], [address], Progress Notes * ANA BIRD EDOB:1940 (84 yo F)Acc No.[id number]:01/10/2025 Patient:??ANA BIRD :1940?Age:84 Y?Sex:Fe male Address:[address] [place] [address], [facility] [address] * Refills?? Refill Furosemide Tablet, 20 MG, 90 Tablet, TAKE 1 TABLET BY MOUTH EVERY DAY, 90 days, Refills=0 * true * Date:??
--- OUTSIDE RECORDS SUMMARY | 2025-02-07 16:44 | XMS_ITS ---
Author Organization [facility] Address [address] [place] [address] Care Team Providers Care Dental Appliance Mechanic Name Role Phone MUSEGUSTAVO KRISHNAMURTHY Unavailable [phone] AUNG YI Unavailable [phone] REASON FOR VISIT annual Encounters Encounter Location Date Provider Diagnosis [facility] [address] [place] [address] 12/30/2024 AUNG YI PLAN OF TREATMENT Next Appt Details Provider Name:AUNG YI, 02:15:00 PM, [address] [place], [address], Progress Notes * ANA BIRD EDOB:1940 (84 yo F)Acc No.[id number]:12/30/2024 Progress Note Patient:??ANA BIRD Jessica Provider:??AUNG YI PA-C :1940?Age:84 Y?Sex:Fe male Date:12/30/2024 Address:[address] [place] [address] [facility] Subjective: * Chief Complaints: * ?1. Annual. * Medical History:?? Objective: Assessment: Plan: * Treatment: * Images: Billing Information: * Visit Code:?? * Procedure Codes:?? Care Plan Details* * Sign off status: Pending * Provider:??AUNG YI PA-C Date:??12/30
--- OUTSIDE RECORDS SUMMARY | 2025-02-07 16:44 | XMS_ITS ---
Author Organization [facility] Address [address] [place] [address] Care Team Providers Care Hardwood Floor Finisher Name Role Phone GUSTAVO MUSE Unavailable [phone] REASON FOR VISIT REferral - naples Encounters Encounter Location Date Provider Diagnosis [address] [place] [id number] 12/27/2024 GUSTAVO MUSE PLAN OF TREATMENT Next Appt Details Provider Name:AUNG YI, 02:15:00 PM, [address], [place], [address], Progress Notes * ANA BIRD EDOB:1940 (84 yo F)Acc No.[id number]:12/27/2024 Patient:??ANA BIRD :1940?Age:84 Y?Sex:Fe male Address:[address] [place] [address] [place], [place] [address] * true * Date:??
--- OUTSIDE RECORDS SUMMARY | 2025-02-07 16:44 | XMS_ITS ---
[facility] Address [address] [place] [address] Care Team Providers Care Bingo Attendant Name Role Phone Tim Fontana Primary Care Provider Silvia Martino Unavailable [phone] Allergies Allergen (clinical drug ingredient) Drug/Non Drug Allergy documented on EMR Reaction Allergy Type Onset Date Status aspirin Aspirin Unknown Drug Allergy Active REASON FOR VISIT Painful nail(s) aggravated by shoes causing difficulty standing/walking, Wart(s), Foot pain Medications Medication SIG (Take, Route, Frequency, Duration) Notes Start Date End Date Status Furosemide 20 MG Oral for 90 Days Active Losartan Potassium 25 MG Oral for 60 Days Active traMADol HCl 50 MG TAKE 1 TABLET BY KAYLEE TH EVERY DAY NEEDED FOR SEVERE PAIN FOR 7 DAYS Oral for 7 Days Active Gabapentin 100 MG Oral for 14 Days Active Levothyroxine Sodium 100 MCG TAKE 1 TABL ET BY MOUTH EVERY DAY IN THE MORNING ON EMPTY STOMACH FOR 90 DAYS Oral for 90 Days Active Social History Tobacco Use: Social History Observation Description Date Details (start date - stop date) Never Smoker NA - NA Tobacco use other than smoking: Question Answer Notes Are you an other tobacco user? No Tobacco Control (Standard) Question Answer Notes Tobacco use: Nonsmoker Problems Problem Type SNOMED Code ICD Code Onset Dates Problem Status W/U Status Risk Notes Problem Plantar wart (90207949) Plantar wart (B07.0) Active confirmed Problem [id number] Hallux valgus (acquired), right foot (M20.11) Active confirmed Vital Signs Height 5ft2in in 01/11/2025 Weight 192 lbs 01/11/2025 BMI 35.11 kg/m2 01/11/2025 Blood pressure systolic 130 mm Hg 01/12/20 25 Blood pressure diastolic 80 mm Hg 025 Encounters Encounter Location Date Provider Diagnosis [facility] [address] [address] 01/11/2025 Silvia Judd Onychomycosis B35.1 ; Plantar wart B07.0 ; Pain in right toe(s) M79.674 ; Pain in left toe(s) M79.675 ; Right foot pain M79.671 ; Pain in right ankle and joints of right foot M25.571 ; Bursitis of intermetatarsal bursa of right foot M77.51 ; Metatarsalgia, right foot M77.41 and Hallux valgus (acquired), right foot M20.11 Assessments Encounter Date Diagnosis (ICD Code) Assessment Notes Treatment Notes Treatment Clinical Notes Section Notes 01/11/2025 Onychomycosis (ICD-10 - B35.1) 01/11/2025 Plantar wart (ICD-10 - B07.0) 01/11/2025 Pain in right toe(s) (ICD-10 - M79.674) 01/11/2025 Pain in left toe(s) (ICD-10 - M79.675) 01/11/2025 Right foot pain (ICD-10 - M79.671) 01/11/2025 Pain in right ankle and joints of right foot (ICD-10 - M25.571) 01/11/2025 Bursitis of intermetatarsal bursa of right foot (ICD-10 - M77.51) 01/11/2025 Metatarsalgia, right foot (ICD-10 - M77.41) 01/11/2025 Hallux valgus (acquired), right foot (ICD-10 - M20.11) Plan Of Treatment Next Appt Details Follow Up: 3 Months, Reason: Provider Name:Silvia mariee, 04/12/2025 02:00:00 PM, [address] [place] [address], [phone], Procedure Notes * Category Sub-Category Detail Notes Wart Treatment Procedure Verruca, as desc ribed in exam, were debrided to pin-point bleeding margins with sterile 15 surgical blade, silver nitrate chemocautery applied, recomm. immune-boosting meds such as zinc, recomm. follow up with topical chemosurgical agents, Pt defers any other forms of tx - 01242 Debride Nail 6-10 Nail debridement Due to the cl inical pathology outlined in the exam findings, performance of this nail treatment is medically necessary as its management by an unskilled/untrained nonprofessional would put this patients foot and overall health at risk. Therefore, debridement to affected nail(s), as described in exam ( TA, T1, T2, T3, T4, T5, T6, T7, T8, T9, ), was performed exclusively by the physician of record to reduce/remove overall nail length, girth, thickness, subungual debris, and necrotic tissue, by manual and/or electrical means through the use of a nail nipper and/or dremel-type liquor grinder mill operator, to a more viable healthy nail plate or bed tissue 6-10 nails in total. Silver nitrate was used for any petechial bleeding as necessary. Definitive antifungal treatment options, both pharmaceutical and surgical, have been reviewed and discussed with the patient. The patient solely prefers the use of intermittent/as needed professional debridement services for their nail condition and understands the need for additional periodic treatments to maintain effectiveness in symptomatic relief - 36750 Progress Notes * Morelia BIRD EDOB:1940 (84 yo F)Acc No.[id number]:01/11/2025 Progress Notes Patient:?Morelia BIRD Provider:?Silvia Whaley DPM :1940???Age:84 Y???Sex:Female D ate:01/11/2025 Address:[address] [place] [id number] Pcp:Tim Fontana Subjective: * Chief Complaints: * ???Painful nail(s) aggravate d by shoes causing difficulty standing/walkingWart(s)Foot pain * HPI: ???Painful Nails:?Pt States Last PCP Visit:?Date:?11/17/2024 ???Skin problems:?Pt States PCP Visit: ?DATE?11/17/2024 ???Foot Pain:?Location:?Bottom, Forefoot, RIGHT.?Course:?worse.?Treatments:?rest/alter normal daily activity.? * ROS:?General/Constitutional:?Nausea?denies.?Vomiting?denies.?Hunger Thirst?denies.?Loss appetite?denies.?Chills?denies.?Fatigue?denies.?Fever?denies.?Night Sweats?denies.?Unexplained weight loss?denies.?Unexplained weight gain?denies.?HEENTM:?Dentures?denies.?Dizziness?denies.?Glasses/contacts?denies.?Retinopathy?de nies.?Blurred/double vision?denies.?TMJ?denies.?Discharge/drainage?denies.?Implants?denies.?Sore throat?denies.?Dental implants?denies.?Hard of hearing ?denies.?Difficulty chewing/swallowing/speaking?denies.?Nose bleeds?denies.?Sore mouth?denies.?Respiratory:?On Oxygen?denies.?Pneumonia/pleurisy?denies.?Bronchitis?denies.?Emphysema?denies.?C oughing?denies.?Cough blood?denies.?Shortness of breath?denies.?Wheezing?denies.?Cardiovascular:?Pacemaker?denies.?MVP?denies.?WPW?denies.?CHF?denies.?Heart attack?denies.?Septal defect?denies.?Rapid beat?denies.?Chest pain ?denies.?Atrial Fib.?denies.?Murmur/Palpitations?denies.?Gastrointestinal:?Hemorrhoids?denies.?Stomach/Abdominal pain?denies.?Dark blood stool?denies.?Irritable bowel ?denies.?Constipation?denies.?Diarrhea?denies.?Hematology:?Swelling?denies.?Clots?denies.?Varicose Veins?denies.?Bruising?denies.?Bleeding problem?denies.?Genitourinary:?Blood urine?denies.?Frequent/Painfu/urination/bladder control?denies.?Kidney stones?denies.?Infection (UTI)?denies.?Nephropathy?denies.?sex trans dis (STD)?denies.?Prostate?denies.?Musculoskeletal:?Hammertoes?denies.?Bunions?denies.?Back Pain?denies.?Muscle Cramps/ Resting?denies.?Muscle cramps / walking?denies.?Generalized aches and pains?denies.?Weakness?denies.?Integ.:?[place]?denies.?Scars?denies.?Corns/calluses?denies.?Ingrown nails?denies.?Painful nails?denies.?Open Sores?denies.?Rashes?denies.?Neurologic:?Difficulty sleeping?denies.?Brain disorder?denies.?Numbness?denies.?Balance trouble?denies.?Confusion?denies.?Fainting/blackouts?denies.?Tingling?denies.?Tr emors?denies.? * Medical History:? * Surgical History:?Breast Nayan shaneka * Hospitalization/Major Diagno stic Procedure:?ER - shoulder pain 11/27 * Family History:?No Family Hi story documented..? * Social History:?Tobacco Use:?Tobacco use other than smoking?Are you an other tobacco user??No ?Tobacco Control (Standard)?Tobacco use:?Nonsmoker ???Miscellaneous:?Caffeine: yes, frequency:, 1-2 cups per day. ?Children: yes. ?Exercise: no. ?Marital status: . ?Occupation: Retired. * Medications:?TakingFurosemid e 20 MG Tablet Oral Losartan Potassium 25 MG Tablet Oral Gabapentin 100 MG Capsule Oral Levothyroxine Sodium 100 MCG Tablet TAKE 1 TABLET BY MOUTH EVERY DAY IN THE MORNING ON EMPTY STOMACH FOR 90 DAYS Oral traMADol HCl 50 MG Tablet TAKE 1 TABLET BY MOUTH EVERY DAY NEEDED FOR SEVERE PAIN FOR 7 DAYS Oral Medication List reviewed and reconciled with the patientTaking Furosemide 20 MG Tablet Oral Taking Losartan Potassium 25 MG Tablet Oral Taking Gabapentin 100 MG Capsule Oral Taking Levothyroxine Sodium 100 MCG Tablet TAKE 1 TABLET BY MOUTH EVERY DAY IN THE MORNING ON EMPTY STOMACH FOR 90 DAYS Oral Taking traMADol HCl 50 MG Tablet TAKE 1 TABLET BY MOUTH EVERY DAY NEEDED FOR SEVERE PAIN FOR 7 DAYS Oral Medication List reviewed and reconciled with the patient * Allergies:?Aspirinyes[Allerg ies Verified] Objective: * Vitals:?Ht: 5ft2in, Wt: 192, BMI: 35.11, Shoe size: 6.5, BP: 130/80 mm Hg, Ht- cm: 157.48 cm, Wt-k.09 kg. * Examination: ???General Examination: ?GENERAL APPEARANCE:?Reveals a pleasant, alert, well-nourished, well- developed, well hydrated individual, who demonstrates proper attention to hygiene/body habitus, and is in no acute distress, Pt serves as own?historian for office visit today.?ORIENTED:?person, place, and time.?Neurological: ?SENSORY:?Neurological exam reveals intact sensorium, pain sensation normal, vibration sensation intact, pinprick sensation is normal in the lower extremities, Pt denies, anesthesia, burning, paresthesia, tingling, B/L.?TINEL'S COMPRESSION:? Negative tarsal tunnel, tori pedis, and medial calcaneal nerves, Right.?DEEP TENDON REFLEXES:?Achilles, 2/4, B/L.?Vascular: ?DP PULSES (B):?3/4, B/L.?PT PULSES (B):?3/4, B/L.?CAPILLARY FILL TIME:?immediate, all digits, B/L.?TROPHIC CONDITION-TEXTURE/ELASTICITY/TURGOR/HAIR GROWTH (B):?normal, B/L.?TEMPERTURE GRADIENT (C):?warm to cool, proximal to distal, B/L.?PIGMENTATION:?normal, B/L.?EDEMA (C):?absent, B/L.?Dermatologic: ?VERRUCA:?Reveals a Single , multi-loculated , mosaic-patterned, round, raised, flat-topped, petechial bleeding papule(s), with cauliflower appearance and interruption of skin lines, pain to lateral compression, and size estimated at 5 mm diameter, plantar Forefoot, RIGHT.?Orthopedic: ?MUSCLE STRENGTH:?5/5 all groups in a symmetrical fashion , B/L.?BUNION:?Medially prominent 1st MPJ, RIGHT, Lateral tracking 1st MPJ nonreducible.?MPJ PATHOLOGY:? Pain, swelling, and inflammation to plantar (1st, ), MPJ(s), RIGHT, No MPJ pain with ROM, [ - ] Ecchymosis.?FOOTWEAR:?shoe gear properties exacerbate patients foot/toe deformity.?Nails: ?NAILS are:?Elongated, overgrown, dystrophic, lytic, greater than 3mm thick, discolored and friable with crumbly malodorous subungual debris, with pain on palpation, TA, T1, T2, T3, T4, T5, T6, T7, T8, T9.? Assessment: * Assessment: 1.?Plantar wart - B07.0 (Milly jose carlos)???2.?Onychomycosis - B35.1???3.?Pain in right toe(s) - M79.674???4.?Pain in left toe(s) - M79.675???5.?Right foot pain - M79.671???6.?Pain in right ankle and joints of right foot - M25.571???7.?Bursitis of intermetatarsal bursa of right foot - M77.51???8.?Metatarsalgia, right foot - M77.41???9.?Hallux valgus (acquired), right foot - M20.11??? Plan: * Treatment: * Procedures:?Debride Nail 6-10:?Nail debridement?Due to the clinical pathology outlined in the exam findings, performance of this nail treatment is medically necessary as its management by an unskilled/untrained nonprofessional would put this patients foot and overall health at risk. Therefore, debridement to affected nail(s), as described in exam ( TA, T1, T2, T3, T4, T5, T6, T7, T8, T9, ), was performed exclusively by the physician of record to reduce/remove overall nail length, girth, thickness, subungual debris, and necrotic tissue, by manual and/or electrical means through the use of a nail nipper and/or dremel-type liquor grinder mill operator, to a more viable healthy nail plate or bed tissue 6- 10 nails in total. Silver nitrate was used for any petechial bleeding as necessary. Definitive antifungal treatment options, both pharmaceutical and surgical, have been reviewed and discussed with the patient. The patient solely prefers the use of intermittent/as needed professional debridement services for their nail condition and understands the need for additional periodic treatments to maintain effectiveness in symptomatic relief - 43413.?Wart Treatment:?Procedure?Verruca, as described in exam, were debrided to pin-point bleeding margins with sterile 15 surgical blade, silver nitrate chemocautery applied, recomm. immune-boosting meds such as zinc, recomm. follow up with topical chemosurgical agents, Pt defers any other forms of tx - 76294.? * Procedure Codes:?17483 DEBRI DE NAIL, 6 OR MORE, Modifiers: XS 28003 Wart Destruction, 1-14, Modifiers: XS * Preventive Medicine:? ??Counseling:?Discussion:?-03: Office or other outpatient visit for the evaluation and management of a new patient, which required a medically appropriate history and/or examination and LOW level of DECISION MAKING for: 1 STABLE ACUTE UNCOMPLICATED PROBLEM, 2 OR MORE MINOR PROBLEMS, OR 1 STABLE CHRONIC PROBLEM, THAT POSE(S) A LOW RISK FOR MORBIDITY/MORTALITY. The visit on the day of the encounter encompassed interpreting the data and educating the patient as to the nature of their condition, treatment options available according to their individual PMH, meds, allergies, and overall health/living conditions, as well as any potential risks or complications that may occur from a failure to adhere to, and participate in, the recommended course of therapy. The discussion included a complete verbal, and/or written explanation of the examination results, any x-rays taken, the proposed diagnosis, and outline of the treatment plan. A schedule for future care needs was also explained. The patient verbalized an understanding of the instructions at this time and agreed to be an active participant in their treatment. If the patient should think of any questions or concerns after the visit, I have encouraged the patient to call the office.?Metatarsalgea:?I explained to the patient the possible etiologies of their Metatarsalgea Foot pain, including foot type/shoegear/activity level/exercise routine and the risks/benefits of all the different treatment options for pain including: No treatment at all, Rest, Ice, NSAIDs(only if well tolerated after meals), New/supportive Shoe gear, Strappings and Tapings, Foot/Ankle AFO Bracing, Stretching exercises, Deep Tissue Massage, Arch support/shoe inserts, Custom orthoses, Topical analgesics including Aspercream/Voltaren gel, Physical Therapy, Cortisone injection therapy, EPAT/ESWT. Advantages and disadvantages of each option were discussed and the patients questions re: shoe gear, custom vs prefabricated inserts, activity level, PO vs Topical medications (and their respective potential complications/drug interactions/side effects), and consistency in home treatment regimens for optimal success were answered to their verbally confirmed satisfaction.?Shoe Gear Counseling:?The patient and I reviewed the types of shoes they should be wearing. My recommendation included obtaining a well-fitted shoe with a good supportive, non-foldable nor twistable sole, plenty of toe/room for the forefoot, and proper arch support. Based on todays examination, I recommended the patient look for new shoes, by having their feet professionally measured. We discussed that generally the best time of the day for a shoe fitting is the afternoon. Different shoes types and brands to best match the patients occupation and vocation were discussed. Specific brand selection will be up to the patient, their individual foot condition/deformities, and fit. The patient and I reviewed the standard new shoe break in period by wearing them for a few hours a day while checking for redness or sores as wear time is increased. The patient verbally confirmed to understanding the information discussed.? ??Screening/Special Tests:?Fall Risk?Screening:?No falls in the past year ?FALLS: Screening for Future Fall Risk?Have you had any falls with injury in the past year??No * Follow Up:?3 Months * Images: * Sign off status: Completed true * Provider:?Silvia Whaley DPM Date:?09/2025 Generated for Nicolás feldman/Ned/Cori on:?02/07/2025 04:44 PM EDT History and Physical Notes * HPI (History of Present Illness) Category Sub-Category Detail Notes Category Not es Painful Nails Pt States Last PCP Visit: Date:: 11/17/2024 Skin problems Pt States PCP Visit: DATE: 11/17/2024 Foot Pain Location: Bottom, Forefoot, RIGHT Course: worse Treatments: rest/alter normal da rui activity Examination Category Sub-Category Detail Notes Category Not es Neurological SENSORY: Neurological exa m reveals intact sensorium, pain sensation normal, vibration sensation intact, pinprick sensation is normal in the lower extremities, Pt denies, anesthesia, burning, paresthesia, tingling, B/L TINEL'S COMPRESSION: Negative tarsal martina ophelia, tori pedis, and medial calcaneal nerves, Right DEEP TENDON REFLEXES: Achilles, 2/4, B/L Dermatologic VERRUCA: Reveals a Single , multi-loculated , mosaic-patterned, round, raised, flat-topped, petechial bleeding papule(s), with cauliflower appearance and interruption of skin lines, pain to lateral compression, and size estimated at 5 mm diameter, plantar Forefoot, RIGHT Orthopedic BUNION: Medially promine nt 1st MPJ, RIGHT, Lateral tracking 1st MPJ nonreducible FOOTWEAR EVALUATION: shoe gear propertie s exacerbate patients foot/toe deformity MPJ PATHOLOGY: Pain, swelling, and inflammation to plantar (1st, ), MPJ(s), RIGHT, No MPJ pain with ROM, [ - ] Ecchymosis MUSCLE STRENGTH: 5/5 all groups in a symmetrical fashion , B/L General Examination GENERAL APPEARANCE: Reveals a pleasant, alert, well- nourished, well-developed, well hydrated individual, who demonstrates proper attention to hygiene/body habitus, and is in no acute distress, Pt serves as own historian for office visit today ORIENTED: person, place, and t jacqueline Vascular DP PULSES (B): 3/4, B/L PT PULSES (B): 3/4, B/L CAPILLARY FILL TIME: immediate, all digi ts, B/L TEMPERTURE GRADIENT (C): warm to cool, p roximal to distal, B/L TROPHIC CONDITION-TEXTURE/ELASTICITY/TURGOR/HAIR GROWTH (B): normal, B/L EDEMA (C): absent, B/L PIGMENTATION: normal, B/L Nails NAILS are: Elongated, overg rown, dystrophic, lytic, greater than 3mm thick, discolored and friable with crumbly malodorous subungual debris, with pain on palpation, TA, T1, T2, T3, T4, T5, T6, T7, T8, T9
--- OUTSIDE RECORDS SUMMARY | 2025-02-07 16:44 | XMS_ITS | Patient Health Record ---
Author Organization [facility] Address [address] [place] [address] Care Team Providers Care Telephone Sales Representative Name Role Phone GUSTAVO MUSE Unavailable [phone] AUNG YI Unavailable [phone] ALLERGIES Allergen (clinical drug ingredient) Drug/Non Drug Allergy documented on EMR Reaction Allergy Type Onset Date Status aspirin Aspirin Unknown Drug Allergy Active REASON FOR REFERRAL Reason M17.9 Osteoarthritis of knee, unspecified Diagnosis 1 Osteoarthritis of kn ee, unspecified (M17.9) Referral Organization [facility] Referring Provider First Name GUSTAVO Referring Provider Last Name ALMAZ Referring Provider Speciality Internal M edicine Referred Provider [facility] Referred Provider Specialty Orthopedic S urgery General Notes [facility], [address], [place] [address], [place] [address] Clinical Notes Margoth English 03:45:11 PM >Deniz Redena 05/26/2024 03:09:17 PM > [facility] has requested that we send their referral form along with the referral so the patient can be scheduled, RAMIN ROBERSON 06/03/2024 10:47:10 AM >sent task to DA manley KIERSTEN 06/17/2024 04:29:44 PM >pt can call and book appt Referral Priority Routine Reason Evaluate & Treat Diagnosis 1 Callus (L84) Referral Organization [facility] Referring Provider First Name AUNG Referring Provider Last Name KD Referring Provider Speciality Internal M edicine Referred Provider Specialty Podiatry General Notes Moraima Calloway 2024 04:16:26 PM > monroe khan [phone] [facility] Clinical Notes Maylin Guaman 02:38:33 PM > Scheduled for 01/11/25 at 10:30 am. Pt aware Referral Priority Routine Reason [facility] Diagnosis 1 Tear of right rotato r cuff, unspecified tear extent, unspecified whether traumatic (M75.101) Referral Organization [facility] Referring Provider First Name AUNG Referring Provider Last Name KD Referring Provider Speciality Internal M edicine Referred Provider Specialty Orthopedic S urgery General Notes RAMIN ROBERSON 0 12/02/2024 01:35:22 PM >information sent over to [facility] both x ray and MRI p- , [phone] Clinical Notes Bethel Summers 10:49:55 AM > Refaxed twice., Bethel Summers 12/29/2024 10:33:08 AM > Appointment booked - February 07 2PM. - David Referral Priority Routine MEDICATIONS Medication SIG (Take, Route, Frequency, Duration) Notes Start Date End Date Status Gabapentin 100 MG 2 capsule at bedtime Orally Once a day for 14 days 12/03/2024 Active traMADol HCl 50 MG 1 tablet as needed f or severe pain Orally Once a day for 7 days 11/30/2024 Active Losartan Potassium 25 MG 1 tablet Orally Once a day for 90 days Active Vitamin D-3 125 MCG (5000 UT) as directed Orally Active Furosemide 20 MG TAKE 1 TABLET BY KAYLEE TH EVERY DAY for 90 days Active SOCIAL HISTORY Tobacco Use: Social History Observation Description Date Details (start date - stop date) Former Smoker NA - NA Sex Assigned At : Social History Observation Description Sex Assigned At Unknown Tobacco Use/Smoking Question Answer Notes Are you a former smoker Section Notes: Quit 45-50 yrs ago smoked 1/2 pack a day Quit 45-50 yrs ago smoked 1/2 pack a day Quit 45-50 yrs ago smoked 1/2 pack a day Quit 45-50 yrs ago smoked 1/2 pack a day Quit 45-50 yrs ago smoked 1/2 pack a day Quit 45-50 yrs ago smoked 1/2 pack a day Quit 45-50 yrs ago smoked 1/2 pack a day Quit 45-50 yrs ago smoked 1/2 pack a day Quit 45-50 yrs ago smoked 1/2 pack a day Quit 45-50 yrs ago smoked 1/2 pack a day Quit 45-50 yrs ago smoked 1/2 pack a day Quit 45-50 yrs ago smoked 1/2 pack a day Quit 45-50 yrs ago smoked 1/2 pack a day Quit 45-50 yrs ago smoked 1/2 pack a day PROBLEMS Problem Type ICD Code Onset Dates Problem Status W/U Status Risk SNOMED Code Notes Problem Other specified hypothyroidism (E03.8) Active confirmed Hypothyroidism (84818133) Problem Hypothyroidism, unspecified (E03.9) Active confirmed Hypothyroidism (45420678) Problem Vitamin D deficiency, unspecified (E55.9) Active confirmed 96301424 Problem Hyperlipidemia, unspecified (E78.5) Active confirmed Hyperlipidemia (46400609) Problem Constipation, unspecified (K59.00) Active confirmed Constipation (34876534) Problem Osteoarthritis of knee, unspecified (M17.9) Active confirmed Osteoarthritis of knee (628209625) Problem Pain in arm, unspecified (M79.603) Active confirmed Pain in limb (01582970) Problem Type 2 diabetes mellitus with hyperglycemia (E11.65) Active confirmed Hyperglycemia d ue to type 2 diabetes mellitus (592621200878545) Problem Essential hypertension (I10) Active confirmed Essential hypertension (73434160) Problem Shoulder pain, unspecified chronicity, unspecified laterality (M25.519) Active confirmed Shoulder joint pain (687660985) Problem Hyperlipidemia, unspecified hyperlipidemia type (E78.5) Active confirmed 06607245 Problem Acquired hypothyroidism (E03.9) Active confirmed 975492538 Problem Annual physical exam (Z00.00) Active confirmed 938545206 Problem Vitamin D deficiency (E55.9) Active confirmed Vitamin D deficiency (02888853) Problem Dyslipidemia (E78.5) Active confirmed Dyslipidemia (473951339) Problem 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) Active confirmed Disorder due to type 2 diabetes mellitus (453573012) Problem Anemia due to vitamin B12 deficiency, unspecified B12 deficiency type (D51.9) Active confirmed 56438835 Problem Hyperthyroidism (E05.90) Active confirmed Hyperthyroidism (05999324) Problem Dry eye (H04.129) Active confirmed Tear film insufficiency (88042579) Problem Liver lesion (K76.9) Active confirmed Lesion of liver (712824657) Problem Lipid screening (Z13.220) Active confirmed 373984920 Problem Tear of right rotator cuff, unspecified tear extent, unspecified whether traumatic (M75.101) Active confirmed 88827421914793709 Problem Generalized osteoarthritis (M15.9) Active confirmed Problem Shoulder pain, right (M25.511) Active confirmed Shoulder dariel nt pain (303131283) Problem Callus (L84) Active confirmed VITAL SIGNS Heart Rate 75 /min 11/30/2024 Blood pressure diastolic 80 mm Hg 11/30/2024 Oximetry 97 % 11/30/2024 Height 60 in 11/30/2024 Blood pressure systolic 134 mm Hg 11/30/2024 Weight 190.6 lbs 11/30/2024 BMI 37.22 kg/m2 11/30/2024 Encounters Encounter Location Date Provider Diagnosis [facility] [address] [place] [address] 10/04/2024 TALAL MUSE [facility] [address] [place] [address] 12/30/2024 AUNG KD [facility] [address] [place] [address] 03/08/2024 TALAL MUSE Essential hypertensi on I10 ; Hyperlipidemia, unspecified E78.5 ; Osteoarthritis of knee, unspecified M17.9 and Type 2 diabetes mellitus with hyperglycemia E11.65 [facility] [address] [place] [address] 04/12/2024 TALAL MUSE Essential hypertensi on I10 ; Swelling R60.9 and Osteoarthritis of knee, unspecified M17.9 [facility] [address] [place] [address] 11/23/2024 AUNG KD Pain in arm, unspeci fied M79.603 ; Liver lesion K76.9 ; Shoulder pain, unspecified chronicity, unspecified laterality M25.519 ; Hypothyroidism, unspecified E03.9 and Generalized osteoarthritis M15.9 [facility] [address] [place] [address] 11/30/2024 AUNG KD Shoulder pain, right M25.511 ; Liver lesion K76.9 ; Hypothyroidism, unspecified E03.9 ; Generalized osteoarthritis M15.9 and Plantar callus L84 [facility] [address] [place] [address] 03/08/[address] [facility] [address] [place] [address] 03/19/[address] [facility] [address] [place] [address] 04/20/2024 TALAL MUSE Essential hypertensi on I10 [facility] [address] [place] [address] 06/03/[address] [facility] [address] [place] [address] 07/22/2024 TALAL MUSE [address] [place] [address] 08/06/[address] [facility] [address] [place] [address] 09/08/[address] [place] [address] 10/04/2024 TALAL MUSE [address] [place] [address] 10/06/[address] [facility] [address] [place] [address] 11/15/[address] [facility] [address] [place] [address] 11/25/[address] [facility] [address] [place] [address] 11/26/2024 TALAL MUSE [address] [place] [address] 11/29/2024 AUNG KD [address] [place] [address] 12/01/[address] [place] [address] 12/01/[address] [facility] [address] [place] [address] 12/01/[address] [facility] [address] [place] [address] 12/03/[address] [place] [address] 12/13/2024 AUNG YI [facility] [address] [place] [address] 12/15/2024 TALSON MUSE [address] [place] [address] 12/16/2024 TALSON MUSE [address] [place] [address] 12/27/[address] [place] [address] 01/10/2025 AUNG IY ASSESSMENTS Encounter Date Diagnosis Assessment Notes Treatment Notes Treatment Clinical Notes Section Notes 03/08/2024 Hyperlipidemia, unspecified (ICD-10 - E78.5) Patient past me dical history of hypertension hyperlipidemia osteoarthritis of the knee and diabetes mellitus. Meds changed with amlodipine discontinued and started on losartan 25 mg twice a day. Will follow-up on blood pressure. Blood work looks stable but LDL is slightly elevated. Patient will continue medications and follow-up in April to follow-up on this issue of hypertension and med changes 04/12/2024 Essential hypertension (ICD-10 - I10) # essential hypertension: Pt reports discontinuation of losartan without a rise in BP upon daily checks. Patieint will not continue losartan. To monitor BP daily and to call the office if experiencing higher BP readings, dizziness or any more falls. #Swelling: Attributable to losartan. Discontinue and contact office if swelling recurs. #Osteoarthritis of knee: Follow up with [facility] refer[facility] for cortisone shots. Knee supporting brace unlikely to provide relief. 04/12/2024 Swelling (ICD-10 - R60.9) # essential hypertension: Pt reports discontinuation of losartan without a rise in BP upon daily checks. Patieint will not continue losartan. To monitor BP daily and to call the office if experiencing higher BP readings, dizziness or any more falls. #Swelling: Attributable to losartan. Discontinue and contact office if swelling recurs. #Osteoarthritis of knee: Follow up with [facility] refer[facility] for cortisone shots. Knee supporting brace unlikely to provide relief. 04/20/2024 Essential hypertension (ICD-10 - I10) 03/08/2024 Essential hypertension (ICD-10 - I10) Patient past med ical history of hypertension hyperlipidemia osteoarthritis of the knee and diabetes mellitus. Meds changed with amlodipine discontinued and started on losartan 25 mg twice a day. Will follow-up on blood pressure. Blood work looks stable but LDL is slightly elevated. Patient will continue medications and follow-up in April to follow-up on this issue of hypertension and med changes 11/23/2024 Pain in arm, unspecified (ICD-10 - M79.603) Ana is a pleasant 84-year-old female with a past medical history of hypothyroidism, hypertension, anxiety, carpal tunnel,, hyperlipidemia presents to the office today for a follow-up appointment. #Right arm pain: At this time with the patient's history of enduring numbness, cold like sensation , decree sensation in the patient's right arm a stat duplex ultrasound has been ordered to rule out a blood clot at this time. Differential at this time includes DVT, carpal tunnel, nerve impingement, rotator cuff tear. Right shoulder x-ray additionally ordered. #Incidental hepatic lobe lesion: MRI with and without contrast of the abdomen ordered for further evaluation. #Hypothyroidism: Patient would benefit from a repeat blood panel at her follow-up appointment scheduled for 1 week. #Osteoarthritis: Continue calcium and vitamin D supplementation All questions have been answered to patient's satisfaction. Patient verbalized understanding of diagnosis and treatments explained. Advised to call sooner prior to next visit it any questions/concerns arise. Case discussed with Shyann COX who reviewed the assessment and plan. Chart, medications, labs, vital signs reviewed. Dictation was accomplished with the use of Estimize voice recognition software, which is prone to medical misidentifications and grammatical errors. This are unintentional and the practitioner does try to identify and correct these, but some could still be present. Please do not hesitate to contact practitioner for clarification. 11/23/2024 Liver lesion (ICD-10 - K76.9) Ana is a pleasant 84-year-old female with a past medical history of hypothyroidism, hypertension, anxiety, carpal tunnel,, hyperlipidemia presents to the office today for a follow-up appointment. #Right arm pain: At this time with the patient's history of enduring numbness, cold like sensation , decree sensation in the patient's right arm a stat duplex ultrasound has been ordered to rule out a blood clot at this time. Differential at this time includes DVT, carpal tunnel, nerve impingement, rotator cuff tear. Right shoulder x-ray additionally ordered. #Incidental hepatic lobe lesion: MRI with and without contrast of the abdomen ordered for further evaluation. #Hypothyroidism: Patient would benefit from a repeat blood panel at her follow-up appointment scheduled for 1 week. #Osteoarthritis: Continue calcium and vitamin D supplementation All questions have been answered to patient's satisfaction. Patient verbalized understanding of diagnosis and treatments explained. Advised to call sooner prior to next visit it any questions/concerns arise. Case discussed with Shyann COX who reviewed the assessment and plan. Chart, medications, labs, vital signs reviewed. Dictation was accomplished with the use of Estimize voice recognition software, which is prone to medical misidentifications and grammatical errors. This are unintentional and the practitioner does try to identify and correct these, but some could still be present. Please do not hesitate to contact practitioner for clarification. 11/30/2024 Liver lesion (ICD-10 - K76.9) Ana is a pleasant 84-year-old female with a past medical history of hypothyroidism, hypertension, anxiety, carpal tunnel,, hyperlipidemia presents to the office today for a follow-up appointment. #Right arm pain: Recent ultrasound completed that was negative for DVT, x-ray of the right shoulder joint demonstrated osteoarthritis, with the patient's positive physical exam findings of tenderness upon palpation of the glenohumeral and AC joint along with a positive Hawking's test and MRI of the right shoulder without contrast will be ordered today. #Plantar callus: Thick plantar callus noted on the patient's right plantar surface of the right lower extremity, malodorous podiatry referral placed today for further evaluation #Incidental hepatic lobe lesion: MRI with and without contrast of the abdomen ordered for further evaluation. #Hypothyroidism: Patient would benefit from a repeat blood panel at her follow-up appointment, continue Levothyroxine. #Pain control: Continue taking Tylenol, will send tramadol to be utilized as needed. The patient and the patient's son present in office are both educated that this medication may cause constipation and fatigue #Osteoarthritis: Continue calcium and vitamin D supplementation All questions have been answered to patient's satisfaction. Patient verbalized understanding of diagnosis and treatments explained. Advised to call sooner prior to next visit it any questions/concerns arise. Case discussed with Shyann COX who reviewed the assessment and plan. Chart, medications, labs, vital signs reviewed. Dictation was accomplished with the use of Dragon voice recognition software, which is prone to medical misidentifications and grammatical errors. This are unintentional and the practitioner does try to identify and correct these, but some could still be present. Please do not hesitate to contact practitioner for clarification. 11/30/2024 Shoulder pain, right (ICD-10 - M25.511) Ana is a pleasant 84-year-old female with a past medical history of hypothyroidism, hypertension, anxiety, carpal tunnel,, hyperlipidemia presents to the office today for a follow-up appointment. #Right arm pain: Recent ultrasound completed that was negative for DVT, x-ray of the right shoulder joint demonstrated osteoarthritis, with the patient's positive physical exam findings of tenderness upon palpation of the glenohumeral and AC joint along with a positive Hawking's test and MRI of the right shoulder without contrast will be ordered today. #Plantar callus: Thick plantar callus noted on the patient's right plantar surface of the right lower extremity, malodorous podiatry referral placed today for further evaluation #Incidental hepatic lobe lesion: MRI with and without contrast of the abdomen ordered for further evaluation. #Hypothyroidism: Patient would benefit from a repeat blood panel at her follow-up appointment, continue Levothyroxine. #Pain control: Continue taking Tylenol, will send tramadol to be utilized as needed. The patient and the patient's son present in office are both educated that this medication may cause constipation and fatigue #Osteoarthritis: Continue calcium and vitamin D supplementation All questions have been answered to patient's satisfaction. Patient verbalized understanding of diagnosis and treatments explained. Advised to call sooner prior to next visit it any questions/concerns arise. Case discussed with Shyann COX who reviewed the assessment and plan. Chart, medications, labs, vital signs reviewed. Dictation was accomplished with the use of Estimize voice recognition software, which is prone to medical misidentifications and grammatical errors. This are unintentional and the practitioner does try to identify and correct these, but some could still be present. Please do not hesitate to contact practitioner for clarification. 11/30/2024 Hypothyroidism, unspecified (ICD-10 - E03.9) Ana is a pleasant 84-year-old female with a past medical history of hypothyroidism, hypertension, anxiety, carpal tunnel,, hyperlipidemia presents to the office today for a follow-up appointment. #Right arm pain: Recent ultrasound completed that was negative for DVT, x-ray of the right shoulder joint demonstrated osteoarthritis, with the patient's positive physical exam findings of tenderness upon palpation of the glenohumeral and AC joint along with a positive Hawking's test and MRI of the right shoulder without contrast will be ordered today. #Plantar callus: Thick plantar callus noted on the patient's right plantar surface of the right lower extremity, malodorous podiatry referral placed today for further evaluation #Incidental hepatic lobe lesion: MRI with and without contrast of the abdomen ordered for further evaluation. #Hypothyroidism: Patient would benefit from a repeat blood panel at her follow-up appointment, continue Levothyroxine. #Pain control: Continue taking Tylenol, will send tramadol to be utilized as needed. The patient and the patient's son present in office are both educated that this medication may cause constipation and fatigue #Osteoarthritis: Continue calcium and vitamin D supplementation All questions have been answered to patient's satisfaction. Patient verbalized understanding of diagnosis and treatments explained. Advised to call sooner prior to next visit it any questions/concerns arise. Case discussed with Shyann COX who reviewed the assessment and plan. Chart, medications, labs, vital signs reviewed. Dictation was accomplished with the use of Estimize voice recognition software, which is prone to medical misidentifications and grammatical errors. This are unintentional and the practitioner does try to identify and correct these, but some could still be present. Please do not hesitate to contact practitioner for clarification. 11/23/2024 Shoulder pain, unspecified chronicity, unspecified laterality (ICD-10 - M25.519) Ana is a pleasant 84-year-old female with a past medical history of hypothyroidism, hypertension, anxiety, carpal tunnel,, hyperlipidemia presents to the office today for a follow-up appointment. #Right arm pain: At this time with the patient's history of enduring numbness, cold like sensation , decree sensation in the patient's right arm a stat duplex ultrasound has been ordered to rule out a blood clot at this time. Differential at this time includes DVT, carpal tunnel, nerve impingement, rotator cuff tear. Right shoulder x-ray additionally ordered. #Incidental hepatic lobe lesion: MRI with and without contrast of the abdomen ordered for further evaluation. #Hypothyroidism: Patient would benefit from a repeat blood panel at her follow-up appointment scheduled for 1 week. #Osteoarthritis: Continue calcium and vitamin D supplementation All questions have been answered to patient's satisfaction. Patient verbalized understanding of diagnosis and treatments explained. Advised to call sooner prior to next visit it any questions/concerns arise. Case discussed with Shyann COX who reviewed the assessment and plan. Chart, medications, labs, vital signs reviewed. Dictation was accomplished with the use of Estimize voice recognition software, which is prone to medical misidentifications and grammatical errors. This are unintentional and the practitioner does try to identify and correct these, but some could still be present. Please do not hesitate to contact practitioner for clarification. 04/12/2024 Osteoarthritis of knee, unspecified (ICD-10 - M17.9) # essential hypertension: Pt reports discontinuation of losartan without a rise in BP upon daily checks. Patieint will not continue losartan. To monitor BP daily and to call the office if experiencing higher BP readings, dizziness or any more falls. #Swelling: Attributable to losartan. Discontinue and contact office if swelling recurs. #Osteoarthritis of knee: Follow up with [facility] referall for cortisone shots. Knee supporting brace unlikely to provide relief. 03/08/2024 Osteoarthritis of knee, unspecified (ICD-10 - M17.9) Patient past me dical history of hypertension hyperlipidemia osteoarthritis of the knee and diabetes mellitus. Meds changed with amlodipine discontinued and started on losartan 25 mg twice a day. Will follow-up on blood pressure. Blood work looks stable but LDL is slightly elevated. Patient will continue medications and follow-up in April to follow-up on this issue of hypertension and med changes 03/08/2024 Type 2 diabetes mellitus with hyperglycemia (ICD-10 - E11.65) Patient past m edical history of hypertension hyperlipidemia osteoarthritis of the knee and diabetes mellitus. Meds changed with amlodipine discontinued and started on losartan 25 mg twice a day. Will follow-up on blood pressure. Blood work looks stable but LDL is slightly elevated. Patient will continue medications and follow-up in April to follow-up on this issue of hypertension and med changes 11/23/2024 Hypothyroidism, unspecified (ICD-10 - E03.9) Ana is a pleasant 84-year-old female with a past medical history of hypothyroidism, hypertension, anxiety, carpal tunnel,, hyperlipidemia presents to the office today for a follow-up appointment. #Right arm pain: At this time with the patient's history of enduring numbness, cold like sensation , decree sensation in the patient's right arm a stat duplex ultrasound has been ordered to rule out a blood clot at this time. Differential at this time includes DVT, carpal tunnel, nerve impingement, rotator cuff tear. Right shoulder x-ray additionally ordered. #Incidental hepatic lobe lesion: MRI with and without contrast of the abdomen ordered for further evaluation. #Hypothyroidism: Patient would benefit from a repeat blood panel at her follow-up appointment scheduled for 1 week. #Osteoarthritis: Continue calcium and vitamin D supplementation All questions have been answered to patient's satisfaction. Patient verbalized understanding of diagnosis and treatments explained. Advised to call sooner prior to next visit it any questions/concerns arise. Case discussed with Shyann COX who reviewed the assessment and plan. Chart, medications, labs, vital signs reviewed. Dictation was accomplished with the use of Estimize voice recognition software, which is prone to medical misidentifications and grammatical errors. This are unintentional and the practitioner does try to identify and correct these, but some could still be present. Please do not hesitate to contact practitioner for clarification. 11/30/2024 Generalized osteoarthritis (ICD-10 - M15.9) Ana is a pleasant 84-year-old female with a past medical history of hypothyroidism, hypertension, anxiety, carpal tunnel,, hyperlipidemia presents to the office today for a follow-up appointment. #Right arm pain: Recent ultrasound completed that was negative for DVT, x-ray of the right shoulder joint demonstrated osteoarthritis, with the patient's positive physical exam findings of tenderness upon palpation of the glenohumeral and AC joint along with a positive Hawking's test and MRI of the right shoulder without contrast will be ordered today. #Plantar callus: Thick plantar callus noted on the patient's right plantar surface of the right lower extremity, malodorous podiatry referral placed today for further evaluation #Incidental hepatic lobe lesion: MRI with and without contrast of the abdomen ordered for further evaluation. #Hypothyroidism: Patient would benefit from a repeat blood panel at her follow-up appointment, continue Levothyroxine. #Pain control: Continue taking Tylenol, will send tramadol to be utilized as needed. The patient and the patient's son present in office are both educated that this medication may cause constipation and fatigue #Osteoarthritis: Continue calcium and vitamin D supplementation All questions have been answered to patient's satisfaction. Patient verbalized understanding of diagnosis and treatments explained. Advised to call sooner prior to next visit it any questions/concerns arise. Case discussed with Shyann COX who reviewed the assessment and plan. Chart, medications, labs, vital signs reviewed. Dictation was accomplished with the use of Estimize voice recognition software, which is prone to medical misidentifications and grammatical errors. This are unintentional and the practitioner does try to identify and correct these, but some could still be present. Please do not hesitate to contact practitioner for clarification. 11/30/2024 Plantar callus (ICD-10 - L84) Ana is a pleasant 84-year-old female with a past medical history of hypothyroidism, hypertension, anxiety, carpal tunnel,, hyperlipidemia presents to the office today for a follow-up appointment. #Right arm pain: Recent ultrasound completed that was negative for DVT, x-ray of the right shoulder joint demonstrated osteoarthritis, with the patient's positive physical exam findings of tenderness upon palpation of the glenohumeral and AC joint along with a positive Hawking's test and MRI of the right shoulder without contrast will be ordered today. #Plantar callus: Thick plantar callus noted on the patient's right plantar surface of the right lower extremity, malodorous podiatry referral placed today for further evaluation #Incidental hepatic lobe lesion: MRI with and without contrast of the abdomen ordered for further evaluation. #Hypothyroidism: Patient would benefit from a repeat blood panel at her follow-up appointment, continue Levothyroxine. #Pain control: Continue taking Tylenol, will send tramadol to be utilized as needed. The patient and the patient's son present in office are both educated that this medication may cause constipation and fatigue #Osteoarthritis: Continue calcium and vitamin D supplementation All questions have been answered to patient's satisfaction. Patient verbalized understanding of diagnosis and treatments explained. Advised to call sooner prior to next visit it any questions/concerns arise. Case discussed with Shyann COX who reviewed the assessment and plan. Chart, medications, labs, vital signs reviewed. Dictation was accomplished with the use of Estimize voice recognition software, which is prone to medical misidentifications and grammatical errors. This are unintentional and the practitioner does try to identify and correct these, but some could still be present. Please do not hesitate to contact practitioner for clarification. 11/23/2024 Generalized osteoarthritis (ICD-10 - M15.9) Ana is a pleasant 84-year-old female with a past medical history of hypothyroidism, hypertension, anxiety, carpal tunnel,, hyperlipidemia presents to the office today for a follow-up appointment. #Right arm pain: At this time with the patient's history of enduring numbness, cold like sensation , decree sensation in the patient's right arm a stat duplex ultrasound has been ordered to rule out a blood clot at this time. Differential at this time includes DVT, carpal tunnel, nerve impingement, rotator cuff tear. Right shoulder x-ray additionally ordered. #Incidental hepatic lobe lesion: MRI with and without contrast of the abdomen ordered for further evaluation. #Hypothyroidism: Patient would benefit from a repeat blood panel at her follow-up appointment scheduled for 1 week. #Osteoarthritis: Continue calcium and vitamin D supplementation All questions have been answered to patient's satisfaction. Patient verbalized understanding of diagnosis and treatments explained. Advised to call sooner prior to next visit it any questions/concerns arise. Case discussed with Shyann COX who reviewed the assessment and plan. Chart, medications, labs, vital signs reviewed. Dictation was accomplished with the use of Estimize voice recognition software, which is prone to medical misidentifications and grammatical errors. This are unintentional and the practitioner does try to identify and correct these, but some could still be present. Please do not hesitate to contact practitioner for clarification. PLAN OF TREATMENT Pending Test Test Name Order Date X ray : Shoulder, right 11/23/2024 X ray : Knee, left 2 views 03/25/2022 X ray : Knee, right 2 views 03/25/2022 Hemoglobin A1c 02/14/2021 TSH 02/14/2021 Insulin, Fasting 02/14/2021 Lipid Panel 02/14/2021 Comp. Metabolic Panel (14) 02/14/2021 CBC 02/14/2021 MRI : Abdomen with and without Contrast 11/23/2024 EKG 12/02/2022 25OH VITAMIN D 02/14/2021 BASIC METABOLIC PANEL 04/18/2021 HEMOGLOBIN A1C 04/18/2021 LIPID PANEL 04/18/2021 TSH 04/18/2021 MRI Shoulder w/o Contrast RT 11/30/2024 LIPID PANEL, STANDARD 11/30/2024 LIPID PANEL, STANDARD 12/21/2021 LIPID PANEL, STANDARD 08/05/2022 COMPREHENSIVE METABOLIC PANEL 08/05/2022 COMPREHENSIVE METABOLIC PANEL 12/02/2022 COMPREHENSIVE METABOLIC PANEL 12/21/2021 COMPREHENSIVE METABOLIC PANEL 11/30/2024 BASIC METABOLIC PANEL 11/30/2024 CBC (INCLUDES DIFF/PLT) 11/30/2024 CBC (INCLUDES DIFF/PLT) 12/21/2021 CBC (INCLUDES DIFF/PLT) 12/02/2022 CBC (INCLUDES DIFF/PLT) 08/05/2022 URINALYSIS, COMPLETE 08/05/2022 URINALYSIS, COMPLETE 12/08/2023 URINALYSIS, COMPLETE 12/21/2021 URINALYSIS, COMPLETE 11/30/2024 URINALYSIS, COMPLETE 12/02/2022 HEMOGLOBIN A1c 12/21/2021 HEMOGLOBIN A1c 08/05/2022 VITAMIN B12 11/30/2024 T4 (THYROXINE), TOTAL 12/02/2022 TSH 12/02/2022 TSH 12/21/2021 VITAMIN D,25-OH,TOTAL,IA 12/02/2022 VITAMIN D,25-OH,TOTAL,IA 11/30/2024 US Duplex Venous Study RT 11/23/2024 TSH+T4F+T3Free 11/30/2024 Next Appt Details Provider Name:AUNG KD, 02:15:00 PM, [address], [place], [address], Insurance Providers Payer Name Payer Address Payer Phone Subscriber Number Group Number Insured Name Patient Relationship to Insured Coverage Start Date Coverage End Date [employer] Preferred [address] [place] [address] [id number] ANA BIRD Self - patient is the insured 0 MEDICAL (GENERAL) HISTORY Medical History History ICD Code Hypothyroidism (acquired) E03.9 Hypertension, unspecified type I10 Anxiety F41.9 carpal tunnel syndrome hyperlipidemia Surgical History Surgery Date(Month/Year) breast reduction
--- OUTSIDE RECORDS SUMMARY | 2025-02-07 16:44 | XMS_ITS | Patient Health Record ---
Author Organization [facility] Fátima leonel [place] Address [address] [place] [address] Care Team Providers Care Medical Sales Consultant Name Role Phone Tim Fontana Primary Care Provider Silvia Martino Unavailable [phone] Allergies Allergen (clinical drug ingredient) Drug/Non Drug Allergy documented on EMR Reaction Allergy Type Onset Date Status aspirin Aspirin Unknown Drug Allergy Active Reason For Referral Diagnosis 1 Pain in unspecified foot (M79.673) Referring Provider First Name Tim Referring Provider Last Name Addi Referring Provider Speciality Internal M edicine Referred Organization [facility] Juan A Referred Provider Silvia Whaley Referred Address [address] ,[place], [place],[address], Referred Provider Specialty Podiatry Referral Priority Routine Medications Medication SIG (Take, Route, Frequency, Duration) [...] (Standard) Question Answer Notes Tobacco use: Nonsmoker AUDIT-C (Standard) Question Answer Notes Did you have a drink contain ing alcohol in the past year? Yes How often did you have a dri nk containing alcohol in the past year? Never (0 point) How many drinks did you have on a typical day when you were drinking in the past year? 1 or 2 drinks (0 point) How often did you have six o r more drinks on one occasion in the past year? Never (0 point) Points 0 Interpretation Negative Problems Problem Type SNOMED Code ICD Code Onset Dates Problem Status W/U Status Risk Notes Problem Plantar wart (72314426) Plantar wart (B07.0) Active confirmed Problem [id number] Hallux valgus (acquired), right foot (M20.11) Active confirmed Vital Signs Blood pressure diastolic 80 mm Hg 01/11/2025 Height 5ft2in in 01/11/2025 Blood pressure systolic 130 mm Hg 01/11/2025 Weight 192 lbs 01/11/2025 BMI 35.11 kg/m2 01/11/2025 Encounters Encounter Location Date Provider Diagnosis [facility] [address] [address] [place] [address] 01/11/2025 Silvia Whaley Onychomycosis B35.1 ; Plantar wart B07.0 ; [...] Notes Treatment Clinical Notes Section Notes 01/11/2025 Plantar wart (ICD-10 - B07.0) 01/11/2025 Onychomycosis (ICD-10 - B35.1) 01/11/2025 Pain in right toe(s) (ICD-10 - [...] M20.11) Plan Of Treatment Next Appt Details Provider Name:Silvia Ansley mariee, 04/12/2025 02:00:00 PM, [address] [place] [address], [id number], Insurance Providers Payer Name Payer Address Payer Phone Subscriber Number Group Number Insured Name Patient Relationship to Insured Coverage Start Date Coverage End Date [employer] Preferred [address] [place] [address] [phone] [id number] Morelia Le Self - patient is the insured Medical (General) History Medical History History ICD Code Arthritis Back,Hip,and Knee pain covid-19 High Blood Pressure thyroid Measles Mumps Chicken pox Surgical History Surgery Date(Month/Year) Breast Surgery Hospitalization History Reason Date(Month/Year) ER - shoulder pain 11/27
== END 2025-02-07 14:28 | disposition home or self-care (01) ==
LOC: HO.HOS 13:58
PROVIDERS: PCP Internal Medicine; Visit Provider Orthopaedic Surgery
DX: R20.0 Anesthesia of skin (principal); R20.2 Paresthesia of skin; M19.012 Primary osteoarthritis, left shoulder
CPT/HCPCS: 99204

== ENCOUNTER → 2025-02-07 13:57 | Outpatient (BNVA) | payer MEDICARE, SELFPAY | PROVIDERS: PCP Internal Medicine; Visit Provider Orthopaedic Surgery | DX: R20.0 Anesthesia of skin (principal); R20.2 Paresthesia of skin; M19.011 Primary osteoarthritis, right shoulder | CPT/HCPCS: 99202 ==

== ENCOUNTER 2025-03-10 14:17 | Outpatient (REF) | payer MEDICARE, SELFPAY ==
--- NOTE | 2025-03-10 14:26 | EMG_ITS ---
Chief complaint: 84 years old with over 2 years of paresthesias in right upper extremity, she thinks coming from a COVID vaccination. She also mentions numbness on her fingers, bilateral, depending on positioning. History of bilateral CTR. Reason for referral: Evaluate for brachial plexopathy to explain under arm numbness Referred by: Dr. Pruitt Procedure done: Bilateral upper extremities NCS; patient refuses to do needle EMG Precautions and/or limitations: No needle EMG done The limb temperature was monitored continuously and remained between 32-36 degrees C during the performance of the NCS. Ulnar motor NCS was performed with moderate elbow flexion between 70-90 degrees, with across-elbow distance of 10 cm. Nerve Conduction Studies Anti Sensory Summary Table ?Stim Site NR Onset (ms) Norm Onset (ms) Peak (ms) Norm Peak (ms) O-P Amp (?V) Norm O-P Amp Site1 Site2 Delta-0 (ms) Dist (cm) Gal (m/s) Norm Gal (m/s) Right Lat Ante Brach Cutan Anti Sensory (Lat Forearm) Lat Biceps ? 0.2 0.3 5.5 Lat Biceps Lat Forearm 0.2 0.0 Right Med Ante Brach Cutan Anti Sensory (Med Forearm) Elbow ? 0.1 0.3 8.7 Elbow Med Forearm 0.1 0.0 Left Median Anti Sensory (2nd Digit) Wrist NR <3.6 >10 Wrist 2nd Digit 14.0 Right Median Anti Sensory (2nd Digit) Wrist NR <3.6 >10 Wrist 2nd Digit 14.0 Right Radial Anti Sensory (Thumb) Forearm ? 1.1 2.0 <3.1 6.1 Forearm Thumb 1.1 0.0 Left Ulnar Anti Sensory (5th Digit) Wrist ? 1.5 3.0 <3.7 15.8 >15.0 Wrist 5th Digit 1.5 14.0 93 Right Ulnar Anti Sensory (5th Digit) Wrist ? 2.7 3.4 <3.7 11.6 >15.0 Wrist 5th Digit 2.7 14.0 52 Motor Summary Table ?Stim Site NR Onset (ms) Norm Onset (ms) O-P Amp (mV) Norm O-P Amp iAmp (mV) Amp (1st) (%) Site1 Site2 Delta-0 (ms) Dist (cm) Gal (m/s) Norm Gal (m/s) Left Median Motor (Abd Poll Brev) Wrist ? 9.4 <3.9 2.7 >4.5 3.4 100.0 Elbow Wrist 3.0 17.0 57 >45 Elbow ? 12.4 2.2 2.8 81.5 Right Median Motor (Abd Poll Brev) Wrist ? 9.0 <3.9 3.3 >4.5 4.0 100.0 Elbow Wrist 3.1 18.0 58 >45 Elbow ? 12.1 3.2 3.8 97.0 Left Ulnar Motor (Abd Dig Minimi) Wrist ? 2.8 <3.0 5.0 >5 6.5 100.0 B Elbow Wrist 2.7 14.0 52 >45 B Elbow ? 5.5 4.8 6.4 96.0 A Elbow B Elbow 1.1 10.0 91 >45 A Elbow ? 6.6 4.7 6.3 94.0 Right Ulnar Motor (Abd Dig Minimi) Wrist ? 3.2 <3.0 4.4 >5 5.5 100.0 B Elbow Wrist 2.3 15.0 65 >45 B Elbow ? 5.5 3.3 4.1 75.0 A Elbow B Elbow 2.0 9.0 45 >45 A Elbow ? 7.5 3.5 4.3 79.5 FINDINGS: Bilateral median motor nerves showed prolonged distal latency, normal amplitude and normal conduction velocity. Bilateral median sensory nerves showed absent response. Right ulnar motor nerve showed prolonged distal latency, small amplitude and slow conduction velocity across the elbow. Left ulnar sensory nerve showed small amplitude. All other nerves tested were within normal. IMPRESSION: 1. This is an abnormal nerve conduction study. 2. There is electrodiagnostic evidence for bilateral median neuropathy at the wrist, consistent with Carpal Tunnel Syndrome. 3. 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 4. There is no electrodiagnostic evidence for brachial plexopathy, based on nerve conduction studies alone. Thank you for your kind referral. Agustina Alarcon MD, MARIUM Board Certified, [place] [employer] and Rehabilitation (ABPMR) Board Certified, [place] Board of Electrodiagnostic Medicine (ABEM) CODIN MTDD
--- OUTSIDE RECORDS SUMMARY | 2025-03-10 15:07 | XMS_ITS | Patient Health Record ---
Author Organization [facility] Address [address] [facility] [place] [address] Care Team Providers Care Visual Merchandising Assistant Name Role Phone GUSTAVO MUSE Unavailable [phone] AUNG YI Unavailable [phone] ALLERGIES Allergen (clinical drug ingredient) Drug/Non Drug Allergy documented on EMR Reaction Allergy Type Onset Date Status aspirin Aspirin Unknown Drug Allergy Active REASON FOR REFERRAL Reason M17.9 Osteoarthritis of knee, unspecified Diagnosis 1 Osteoarthritis of kn ee, unspecified (M17.9) Referral Organization [facility] Referring Provider First Name GUSTAVO Referring Provider Last Name ALMAZ Referring Provider Speciality Internal M edicine Referred Provider Neos, Ortho Referred Provider Specialty Orthopedic S urgery General Notes [facility], [address], [place] [address], [place] [address] Clinical Notes Margoth English 03:45:11 PM >Deniz [...] Treat Diagnosis 1 Callus (L84) Referral Organization [facility] Referring Provider First Name AUNG Referring Provider Last Name KD Referring Provider Speciality Internal M edicine Referred Provider Specialty Podiatry General Notes Moraima Calloway 2024 04:16:26 PM > monroe khan [phone] [facility] Clinical Notes Maylin Guaman 02:38:33 PM > Scheduled for 01/11/25 at 10:30 am. Pt aware Referral Priority Routine Reason [facility] Diagnosis 1 Tear of right rotato r cuff, unspecified tear extent, unspecified whether traumatic (M75.101) Referral Organization [employer] [facility] Referring Provider First Name AUNG Referring Provider Last Name KD Referring Provider Speciality Internal M edicine Referred Provider Specialty Orthopedic S urgery General Notes RAMIN ROBERSON 0 12/02/2024 01:35:22 PM >information sent over to [facility] both x ray and MRI p- , [id number] Clinical Notes Bethel Summers 10:49:55 AM > [...] Other specified hypothyroidism (E03.8) Active confirmed Hypothyroidism (74522344) Problem Hypothyroidism, unspecified (E03.9) Active confirmed Hypothyroidism (72373346) Problem Vitamin D deficiency, unspecified (E55.9) Active confirmed 70261968 Problem Hyperlipidemia, unspecified (E78.5) Active confirmed Hyperlipidemia (40243848) Problem Constipation, unspecified (K59.00) Active confirmed Constipation (13497672) Problem Osteoarthritis of knee, unspecified (M17.9) Active confirmed Osteoarthritis of knee (029977715) Problem Pain in arm, unspecified (M79.603) Active confirmed Pain in limb (07931655) Problem Type 2 diabetes mellitus with hyperglycemia (E11.65) Active confirmed Hyperglycemia d ue to type 2 diabetes mellitus (136162525123489) Problem Essential hypertension (I10) Active confirmed Essential hypertension (57922036) Problem Shoulder pain, unspecified chronicity, unspecified laterality (M25.519) Active confirmed Shoulder joint pain (548702538) Problem Hyperlipidemia, unspecified hyperlipidemia type (E78.5) Active confirmed 62138062 Problem Acquired hypothyroidism (E03.9) Active confirmed 184428867 Problem Annual physical exam (Z00.00) Active confirmed 933844295 Problem Vitamin D deficiency (E55.9) Active confirmed Vitamin D deficiency (80276166) Problem Dyslipidemia (E78.5) Active confirmed Dyslipidemia (488510540) Problem 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) Active confirmed 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9) Active confirmed Problem Shoulder pain, right (M25.511) Active confirmed Shoulder dariel nt pain (590799839) Problem Callus (L84) Active confirmed VITAL SIGNS Heart Rate 75 /min 11/30/2024 Blood pressure diastolic 80 mm Hg 11/30/2024 Oximetry 97 % 11/30/2024 Height 60 in 11/30/2024 Blood pressure systolic 134 mm Hg 11/30/2024 Weight 190.6 lbs 11/30/2024 BMI 37.22 kg/m2 11/30/2024 Encounters Encounter Location Date Provider Diagnosis [facility] [address] [place] [address] 10/04/2024 TALAL MUSE [facility] [address] [place] [address] 12/30/2024 AUNG KD [facility] [address] [place] [address] 04/12/2024 TALAL MUSE Essential hypertensi on I10 ; Swelling R60.9 and Osteoarthritis of knee, unspecified M17.9 [facility] [address] [place] [address] 11/23/2024 AUNG KD Pain in arm, unspeci fied M79.603 ; Liver lesion K76.9 ; Shoulder pain, unspecified chronicity, unspecified laterality M25.519 ; Hypothyroidism, unspecified E03.9 and Generalized osteoarthritis M15.9 [facility] [address] [place] [address] 11/30/2024 AUNG KD Shoulder pain, right M25.511 ; Liver lesion K76.9 ; Hypothyroidism, unspecified E03.9 ; Generalized osteoarthritis M15.9 and Plantar callus L84 [facility] [address] [place] [address] 03/19/2024 TALAL MUSE [facility] [address] [place] [address] 04/20/2024 TALAL MUSE Essential hypertensi on I10 [facility] [address] [place] [address] 06/03/[address] [facility] [address] [place] [address] 07/22/2024 TALAL MUSE [address] [place] [address] 08/06/[address] [facility] [address] [place] [address] 09/08/[address] [place] [address] 10/04/2024 TALAL MUSE [address] [place] [address] 10/06/[address] [facility] [address] [address] [place] [address] 11/15/[address] [facility] [address] [facility] [address] [place] [address] 11/25/[address] [facility] [address] [facility] [address] [place] [address] 11/26/2024 TALAL MUSE [address] [place] [address] 11/29/2024 AUNG KD [address] [place] [address] 12/01/[address] [place] [address] 12/01/[address] [facility] [address] [address] [place] [address] 12/01/[address] [facility] [address] [place] [address] 12/03/[address] [place] [address] 12/13/[address] [facility] [address] [place] [address] 12/15/2024 TALAL MUSE [address] [place] [address] 12/16/2024 T[address] [place] [address] 12/27/[address] [place] [address] 01/10/2025 AUNG YI [facility] [address] [place] [address] 02/25/2025 AUNG YI ASSESSMENTS Encounter Date Diagnosis Assessment Notes Treatment Notes Treatment Clinical Notes Section Notes 04/12/2024 Essential hypertension (ICD-10 - I10) # [...] relief. 04/20/2024 Essential hypertension (ICD-10 - I10) 11/23/2024 Pain in arm, unspecified (ICD-10 - [...] it any questions/concerns arise. Case discussed with Shaynn COX who reviewed the assessment and plan. Chart, medications, labs, vital signs reviewed. Dictation was accomplished with the use of Jibo voice recognition software, which is prone to [...] Dictation was accomplished with the use of Jibo voice recognition software, which is prone to [...] Dictation was accomplished with the use of Jibo voice recognition software, which is prone to [...] Dictation was accomplished with the use of Jibo voice recognition software, which is prone to [...] Dictation was accomplished with the use of Jibo voice recognition software, which is prone to [...] Dictation was accomplished with the use of Jibo voice recognition software, which is prone to [...] Knee supporting brace unlikely to provide relief. 11/23/2024 Hypothyroidism, unspecified (ICD-10 - E03.9) Ana [...] Dictation was accomplished with the use of Jibo voice recognition software, which is prone to [...] Dictation was accomplished with the use of Jibo voice recognition software, which is prone to [...] Dictation was accomplished with the use of Jibo voice recognition software, which is prone to [...] Dictation was accomplished with the use of Jibo voice recognition software, which is prone to [...] Duplex Venous Study RT 11/23/2024 [id number] 11/30/2024 Insurance Providers Payer Name Payer Address Payer Phone Subscriber Number Group Number Insured Name Patient Relationship to Insured Coverage Start Date Coverage End Date [employer] Preferred [address] [place] [phone] [id number] ANA BIRD Self - patient is the insured 0 MEDICAL (GENERAL) HISTORY Medical History History ICD Code Hypothyroidism (acquired) E03.9 Hypertension, unspecified type I10 Anxiety F41.9 carpal tunnel syndrome hyperlipidemia Surgical History Surgery Date(Month/Year) breast reduction
--- OUTSIDE RECORDS SUMMARY | 2025-03-10 15:08 | XMS_ITS ---
Author Organization [facility] Address [address] [facility] [place] [address] Care Team Providers Care Mover Name Role Phone ALMAZ GUSTAVO Unavailable [phone] AUNG YI Unavailable [phone] REASON FOR VISIT annual Encounters Encounter Location Date Provider Diagnosis [facility] [address] [facility] [address] [facility] [place] [address] 12/30/2024 AUNG YI PLAN OF TREATMENT No Information Progress Notes * ANA BIRD EDOB:1940 (84 yo F)Acc No.[id number]:12/30/2024 Progress Note Patient:??PELON ANA Jessica Provider:??AUNG YI PA-C :1940?Age:84 Y?Sex:Fe male Date:12/30/2024 Address:[address] [place] [address] Ariella Blanc [facility] Subjective: * Chief Complaints: * ?1. Annual. * Medical History:?? Objective: Assessment: Plan: * Treatment: * Images: Billing Information: * Visit Code:?? * Procedure Codes:?? Care Plan Details* * Sign off status: Pending * Provider:??AUNG YI PA-C Date:??12/30
--- OUTSIDE RECORDS SUMMARY | 2025-03-10 15:08 | XMS_ITS ---
Author Organization [facility] Address [address] [facility] [place] [address] Care Team Providers Care Mail Messenger Name Role Phone MUSEGUSTAVO KRISHNAMURTHY Unavailable [phone] AUNG YI Unavailable [phone] REASON FOR VISIT MWV Encounters Encounter Location Date Provider Diagnosis [facility] [address] [facility] [place] [address] 02/25/2025 AUNG YI PLAN OF TREATMENT No Information Progress Notes * ANA BIRD EDOB:1940 (84 yo F)Acc No.[id number]:02/25/2025 Patient:??ANA BIRD :1940?Age:84 Y?Sex:Fe male Address:[place] [address] * true * Date:??
--- OUTSIDE RECORDS SUMMARY | 2025-03-10 15:08 | XMS_ITS ---
Author Name [facility] Organization Unknown Encounters Encounter Type Encounter Reason Primary Diagnosis Location Date Ambulatory [facility] 08/31/2024 Care Team Organization Name Specialty Phone Email Start Date End Da te [facility] 2024
--- OUTSIDE RECORDS SUMMARY | 2025-03-10 15:08 | XMS_ITS ---
Author Organization [facility] Address [address] [place] [address] Care Team Providers Care Packer Operator Automatic Name Role Phone Tim Fontana Primary Care Provider Silvia Martino Unavailable [phone] Allergies Allergen (clinical drug ingredient) Drug/Non Drug [...] W/U Status Risk Notes Problem Plantar wart (58694671) Plantar wart (B07.0) Active confirmed Problem [id number] Hallux valgus (acquired), right foot (M20.11) Active confirmed Vital Signs Height 5ft2in in 01/11/2025 Weight 192 lbs 01/11/2025 BMI 35.11 kg/m2 01/11/2025 Blood pressure systolic 130 mm Hg 01/12/20 25 Blood pressure diastolic 80 mm Hg 025 Encounters Encounter Location Date Provider Diagnosis [facility] [address] [address] 01/11/2025 Silvia Judd Onychomycosis B35.1 ; Plantar [...] Reason: Provider Name:Silvia mariee, 04/12/2025 02:00:00 PM, [address] [place] [address], [address], Procedure Notes * Category Sub-Category Detail Notes Wart Treatment Procedure Verruca, as desc ribed in exam, were debrided to pin-point bleeding margins with sterile 15 surgical blade, silver nitrate chemocautery applied, recomm. immune-boosting meds such as zinc, recomm. follow up with topical chemosurgical agents, Pt defers any other forms of tx - 64386 Debride Nail 6-10 Nail debridement Due to [...] use of a nail nipper and/or dremel-type floor grinder, to a more viable healthy nail plate [...] to maintain effectiveness in symptomatic relief - 71902 Progress Notes * Morelia BIRD EDOB:1940 (84 yo F)Acc No.[id number]:01/11/2025 Progress Notes Patient:?Morelia BIRD Provider:?Silvia Whaley DPM :1940???Age:84 Y???Sex:Female D ate:01/11/2025 Address:[address] [place] [address] Pcp:Tim Fontana Subjective: * Chief Complaints: * [...] use of a nail nipper and/or dremel-type floor grinder, to a more viable healthy nail plate [...] to maintain effectiveness in symptomatic relief - 88868.?Wart Treatment:?Procedure?Verruca, as described in exam, were debrided to pin-point bleeding margins with sterile 15 surgical blade, silver nitrate chemocautery applied, recomm. immune-boosting meds such as zinc, recomm. follow up with topical chemosurgical agents, Pt defers any other forms of tx - 48593.? * Procedure Codes:?37636 DEBRI DE NAIL, 6 OR MORE, Modifiers: XS 47744 Wart Destruction, 1-14, Modifiers: XS * Preventive [...] Whaley DPM Date:?09/2025 Generated for Nicolás feldman/Ned/Cori on:?03/10/2025 03:08 PM EDT History and Physical Notes * [...]
--- OUTSIDE RECORDS SUMMARY | 2025-03-10 15:08 | XMS_ITS ---
Author Organization [facility] Address [address] [place] [address] Care Team Providers Care Tariff Expert Name Role Phone Tim Fontana Primary Care Provider Silvia Martino Unavailable [phone] Allergies Allergen (clinical drug ingredient) Drug/Non Drug [...] Negative Encounters Encounter Location Date Provider Diagnosis [facility] [address] [place] [address] 03/08/2025 Silvia Whaley Plan Of Treatment Next Appt Details Provider Name:Silvia mariee, 04/12/2025 02:00:00 PM, [address] [facility], [address], Progress Notes * Morelia BIRD EDOB:1940 (84 yo F)Acc No.[id number]:03/08/2025 Progress Notes Patient:?Morelia BIRD Provider:?Silvia Whaley DPM :1940???Age:84 Y???Sex:Female D ate:03/08/2025 Address:[address] [place] [address] [facility] Pcp:Tim Fontana Subjective: * Chief Complaints: * ??? * ROS:?General/Constitutional:?Nausea?denies.?Vomiting?denies.?Hunger Thirst?denies.?Loss appetite?denies.?Chills?denies.?Fatigue?denies.?Fever?denies.?Night Sweats?denies.?Unexplained weight loss?denies.?Unexplained weight gain?denies.?HEENTM:?Dentures?denies.?Dizziness?denies.?Glasses/contacts?denies.?Retinopathy?de nies.?Blurred/double vision?denies.?TMJ?denies.?Discharge/drainage?denies.?Implants?denies.?Sore throat?denies.?Dental implants?denies.?Hard of hearing ?denies.?Difficulty chewing/swallowing/speaking?denies.?Nose bleeds?denies.?Sore mouth?denies.?Respiratory:?On Oxygen?denies.?Pneumonia/pleurisy?denies.?Bronchitis?denies.?Emphysema?denies.?C oughing?denies.?Cough blood?denies.?Shortness of breath?denies.?Wheezing?denies.?Cardiovascular:?Pacemaker?denies.?MVP?denies.?WPW?denies.?CHF?denies.?Heart attack?denies.?Septal defect?denies.?Rapid beat?denies.?Chest pain ?denies.?Atrial Fib.?denies.?Murmur/Palpitations?denies.?Gastrointestinal:?Hemorrhoids?denies.?Stomach/Abdominal pain?denies.?Dark blood stool?denies.?Irritable bowel ?denies.?Constipation?admits.?Diarrhea?denies.?Hematology:?Swelling?denies.?Clots?denies.?Varicose Veins?denies.?Bruising?denies.?Bleeding problem?denies.?Genitourinary:?Blood urine?denies.?Frequent/Painfu/urination/bladder control?denies.?Kidney stones?denies.?Infection (UTI)?denies.?Nephropathy?denies.?sex trans dis (STD)?denies.?Prostate?denies.?Musculoskeletal:?Hammertoes?denies.?Bunions?denies.?Back Pain?admits.?Muscle Cramps/ Resting?denies.?Muscle cramps / walking?denies.?Generalized aches and pains?admits.?Weakness?denies.?Integ.:?Paniagua?denies.?Scars?denies.?Corns/calluses?admits.?Ingrown nails?admits.?Painful nails?admits.?Open Sores?denies.?Rashes?denies.?Neurologic:?Difficulty sleeping?denies.?Brain disorder?denies.?Numbness?admits.?Balance trouble?denies.?Confusion?denies.?Fainting/blackouts?denies.?Tingling?admits.?Tr emors?denies.? * Medical History:?Arthritis, Back,Hip,and Knee pain, Covid-19, High Blood Pressure, Thyroid, Measles, Mumps, Chicken pox. * Family History:?Mother: dece ased, Foot problems, diagnosed with Family history of arthritis.?Father: , diagnosed with Diabetic - NIDDM, Family history of arthritis.? * Social History:?Tobacco Use:?Tobacco use other than smoking?Are you an other tobacco user??No ?Tobacco Control (Standard)?Tobacco use:?Nonsmoker ???Drugs/Alcohol:?Drugs?Have you used drugs other than those for medical reasons in the past 12 months??No ???Miscellaneous:?Caffeine: yes, frequency:, 1-2 cups per day. ?Children: yes. ?Exercise: no. ?Marital status: . ?Occupation: Retired. ???Drug/Alcohol:?AUDIT-C (Standard)?Did you have a drink containing alcohol in the past year??Yes ?How often did you have a drink containing alcohol in the past year??Never (0 point) ?How many drinks did you have on a typical day when you were drinking in the past year??1 or 2 drinks (0 point) ?How often did you have six or more drinks on one occasion in the past year??Never (0 point) ?Points?0 ?Interpretation?Negative * Medications:?Taking Vitamin D3 , Taking Levothyroxine Sodium 100 MCG Tablet 1 tablet in the morning on an empty stomach Orally Once a day , Taking Tylenol , Taking Losartan Potassium 25 MG Tablet 1 tablet Orally Once a day , Taking Furosemide 20 MG Tablet 1 tablet Orally Once a day * Allergies:?Aspirin. Objective: * Vitals:? Assessment: Plan: * Treatment: * Images: * The named appointment provid er may or may not be the originator of this progress note, and it is not deemed complete until electronically signed by the appointment provider. Sign off status: Pending * Provider:?Silvia Whaley DPM Date:?04/2025 Generated for Nicolás feldman/Ned/Cori on:?03/10/2025 03:08 PM EDT
--- OUTSIDE RECORDS SUMMARY | 2025-03-10 15:08 | XMS_ITS | Patient Health Record ---
Author Organization [facility] [place] [facility] leonel Sigourney Address [address] [facility] [place] [address] Care Team Providers Care It Support Engineer Name Role Phone Tim Fontana Primary Care Provider Silvia Martino Unavailable [phone] Allergies Allergen (clinical drug ingredient) Drug/Non Drug Allergy documented on EMR Reaction Allergy Type Onset Date Status aspirin Aspirin Unknown Drug Allergy Active Reason For Referral Diagnosis 1 Pain in unspecified foot (M79.673) Referring Provider First Name Tim Referring Provider Last Name Addi Referring Provider Speciality Internal M edicine Referred Organization [facility] Jua nA Referred Provider Silvia Whaley Referred Address [address] [facility] [address] ,[place], [place],[address], Referred Provider Specialty Podiatry Referral Priority Routine Medications Medication SIG (Take, Route, Frequency, Duration) Notes Start Date End Date Status Losartan Potassium 25 MG 1 tablet Orally Once a day Active Furosemide 20 MG Oral for 90 Days Active Tylenol Active Losartan Potassium 25 MG Oral for 60 Days Active traMADol HCl 50 MG TAKE 1 TABLET BY KAYLEE TH EVERY DAY NEEDED FOR SEVERE PAIN FOR 7 DAYS Oral for 7 Days Active Furosemide 20 MG 1 tablet Orally Once a day Active Gabapentin 100 MG Oral for 14 Days Active Levothyroxine Sodium 100 MCG TAKE 1 TABL ET BY MOUTH EVERY DAY IN THE MORNING ON EMPTY STOMACH FOR 90 DAYS Oral for 90 Days Active Levothyroxine Sodium 100 MCG 1 tablet [...] W/U Status Risk Notes Problem Plantar wart (66912328) Plantar wart (B07.0) Active confirmed Problem [id number] Hallux valgus (acquired), right foot (M20.11) Active confirmed Vital Signs Blood pressure diastolic 80 mm Hg 01/11/2025 Height 5ft2in in 01/11/2025 Blood pressure systolic 130 mm Hg 01/11/2025 Weight 192 lbs 01/11/2025 BMI 35.11 kg/m2 01/11/2025 Encounters Encounter Location Date Provider Diagnosis [facility] [address] [address] 01/11/2025 Silvia Santosa Onychomycosis B35.1 ; Plantar wart B07.0 ; [...] Provider Name:Silvia mariee, 04/12/2025 02:00:00 PM, [address] [place], [address], Insurance Providers Payer Name Payer Address Payer Phone Subscriber Number Group Number Insured Name Patient Relationship to Insured Coverage Start Date Coverage End Date [employer] Preferred [address] [place] [address] [phone] [id number] Morelia Le Self - patient is the insured Medical (General) History Medical History History ICD Code Arthritis Back,Hip,and Knee pain covid-19 High Blood Pressure thyroid Measles Mumps Chicken pox Surgical History Surgery Date(Month/Year) Breast Surgery Hospitalization History Reason Date(Month/Year) ER - shoulder pain 11/27
--- OUTSIDE RECORDS SUMMARY | 2025-03-10 15:08 | XMS_ITS ---
Author Organization [facility] Address [address] [place] [address] Care Team Providers Care Rental Clerk Name Role Phone GUSTAVO MUSE Unavailable [phone] AUNG YI Unavailable [phone] REASON FOR VISIT refill MEDICATIONS Medication SIG (Take, Route, Fr equency, Duration) Notes Start Date End Date Status Furosemide 20 MG TAKE 1 TABLET BY KAYLEE TH EVERY DAY for 90 days Active Encounters Encounter Location Date Provider Diagnosis [address] [address] 01/10/2025 AUNG YI PLAN OF TREATMENT Medication Medication Name Sig Start Date Stop Date Notes Furosemide 20 MG TAKE 1 TABLET BY KAYLEE TH EVERY DAY for 90 days Progress Notes * ANA BIRD EDOB:1940 (84 yo F)Acc No.[id number]:01/10/2025 Patient:??ANA BIRD :1940?Age:84 Y?Sex:Fe male Address:[address] [place] [address] * Refills?? Refill Furosemide Tablet, 20 MG, 90 Tablet, TAKE 1 TABLET BY MOUTH EVERY DAY, 90 days, Refills=0 * true * Date:??
== END 2025-03-10 14:18 | disposition home or self-care (01) ==
LOC: HO.NEURO 14:17
PROVIDERS: PCP Internal Medicine; Visit Provider Orthopaedic Surgery
DX: R20.2 Paresthesia of skin (principal); R20.0 Anesthesia of skin
CPT/HCPCS: 95912

== ENCOUNTER → 2025-03-10 14:26 | Outpatient (BNV) | payer MEDICARE, SELFPAY | PROVIDERS: PCP Internal Medicine; Visit Provider Physical Medicine & Rehabilitation | DX: G56.03 Carpal tunnel syndrome, bilateral upper limbs (principal); G56.21 Lesion of ulnar nerve, right upper limb | CPT/HCPCS: 95912 ==

== ENCOUNTER 2025-08-07 20:02 | Emergency (ER) | payer MEDICARE, SELFPAY ==
--- OUTSIDE RECORDS SUMMARY | 2024-10-04 06:45 | XMS_ITS ---
Author Organization [facility] [address] Address [address] [place] [address] Care Team Providers Care Pre Sales Technical Engineer Name Role Phone GONZÁLEZ YIIA Unavailable [phone] GUSTAVO FONTANA Unavailable [phone] REASON FOR VISIT 4 month f/u Encounters Encounter Location Date Provider Diagnosis [facility] [address] [place] [address] 10/04/2024 GUSTAVO FONTANA Plan Of Treatment Next Appt Details Provider Name:AUNG KD, 02:00:00 PM, [address] , [place], [address], Progress Notes * BIRDANA EDOB:1940 (84 yo F)Acc No.[id number]:10/04/2024 Progress Notes Patient: ANA MCNEAL Provider: Roxie Fontana MD :1940 A ge:83 Y S ex:Female Date:10/04/2024 Address:[address] [place] [address] [place] [facility] Subjective: * Chief Complaints: * 1 . 4 month f/u. * Medical History: Objective: * Vitals: Assessment: Plan: * Treatment: * Procedure Codes: 9 9199 NO SHOW OFFICE VISIT * Images: Billing Information: * Visit Code: * Procedure Codes: 27186 NO SHOW OFFICE VISIT. Care Plan Details* * Electronic signature of MELCHOR FONTANA MD on 08/07/2025 at 08:36 PM EDT Sign off status: Pending * Provider: Roxie Fontana MD Date: 12/05/2023 Generated for Nicolás feldman/Ned/Cori on: 1 08:36 PM EDT
--- OUTSIDE RECORDS SUMMARY | 2024-12-30 10:45 | XMS_ITS ---
Author Organization [facility] [address] Address [address] [place] [address] Care Team Providers Care Custom Shoe Designer And Maker Name Role Phone AUNG YI Unavailable [phone] REASON FOR VISIT annual Encounters Encounter Location Date Provider Diagnosis [facility] [address] [place] [address] 12/30/2024 AUNG YI Plan Of Treatment Next Appt Details Provider Name:AUNG YI, 02:00:00 PM, [address] [facility], [place], [address], Progress Notes * ANA BIRD EDOB:1940 (84 yo F)Acc No.[id number]:12/30/2024 Progress Note Patient: ANA MCNEAL Provider: Danika YI PA-C :1940 A ge:84 Y S ex:Female Date:12/30/2024 Address:[address] [place] [address] [place] [facility] Subjective: * Chief Complaints: * 1 . Annual. * Medical History: Objective: * Vitals: Assessment: Plan: * Treatment: * Images: Billing Information: * Visit Code: * Procedure Codes: Care Plan Details* * Electronic signature of GONZÁLEZ YI PA-C on 08/07/2025 at 08:36 PM EDT Sign off status: Pending * Provider: Danika YI PA-C Date: 0 12/30/2024 Generated for Nicolás feldman/Famelanie/eTransmitting on: 1 08:36 PM EDT
--- OUTSIDE RECORDS SUMMARY | 2025-03-08 10:00 | XMS_ITS ---
Author Organization [facility] Address [address] [place] [address] Care Team Providers Care Beam Warper Name Role Phone FontanaTim Primary Care Provider Silvia Martino Unavailable [phone] Allergies Allergen (clinical drug ingredient) Drug/Non Drug Allergy documented on EMR Reaction Allergy Type Onset Date Status aspirin Aspirin Unknown Drug Allergy Active Medications Medication SIG (Take, Route, Frequency, Duration) Notes Start Date End Date Status Losartan Potassium 25 MG 1 tablet Orally Once a day Active Tylenol Active Furosemide 20 MG 1 tablet Orally Once a day Active Levothyroxine Sodium 100 MCG 1 tablet in the morning on an empty stomach Orally Once a day Active Vitamin D3 Active Social History Tobacco Use: Social History [...] Never (0 point) Points 0 Interpretation Negative Encounters Encounter Location Date Provider Diagnosis [facility] [address] [place] [address] 03/08/2025 Silvia Whaley Plan Of Treatment Next Appt Details Provider Name:Silvia mariee, 09/20/2025 01:30:00 PM, [address] [facility], [place], [address], Progress Notes * Morelia BIRD EDOB:1940 (84 yo F)Acc No.[id number]:03/08/2025 Progress Notes Patient: Morelia MCNEAL Provider: Jessee Whaley DPM :1940 A ge:84 Y S ex:Female Date:03/08/2025 Address:[address] [place] [address], [id number] Pcp:Tim Fontana Subjective: * Chief Complaints: * * ROS: G eneral/Constitutional: Nausea d enies. V omiting d enies. H ross Thirst d enies. L oss appetite d enies. C hills d enies. F atigue d enies.?Fever d enies. N ight Sweats d enies. U nexplained weight loss d enies. U nexplained weight gain d enies. H EENTM: Dentures d enies. D izziness d enies. G lasses/contacts d enies. R etinopathy d enies. B lurred/double vision d enies. T MJ?denies. D ischarge/drainage d enies. I mplants d enies. S ore throat d enies. D ental implants d enies. H jakob of hearing d enies. D ifficulty chewing/swallowing/speaking d enies. N ose bleeds d enies. S ore mouth d enies. ? R espiratory: On Oxygen d enies. P neumonia/pleurisy d enies.?Bronchitis d enies. E mphysema d enies. C oughing d enies. C ough blood?denies. S hortness of breath d enies. W heezing d enies. C ardiovascular: Pacemaker d enies. M MAINTENANCE LEADER d enies. W PW d enies. C HF d enies. H eart attack d enies. S eptal defect d enies. R apid beat d enies. C hest pain d enies. A trial Fib. d enies. M urmur/Palpitations d enies. G astrointestinal: Hemorrhoids d enies. S tomach/Abdominal pain d enies. D ark blood stool d enies. I rritable bowel d enies. C onstipation a dmits. D iarrhea d enies. H ematology: Swelling d enies. C lots d enies. V aricose Veins d enies. B ruising d enies. B leeding problem d enies. G enitourinary: Blood urine d enies. F requent/Painfu/urination/bladder control d enies. K idney stones d enies. I nfection (UTI) d enies. N ephropathy d enies. s ex trans dis (STD) d enies. P rostate d enies. M usculoskeletal: Hammertoes d enies. B unions d enies. B ack Pain a dmits. M uscle Cramps/ Resting d enies. M uscle cramps / walking d enies.?Generalized aches and pains a dmits. W eakness d enies. I nteg.: [place] d enies. S cars d enies. C orns/calluses?admits. I ngrown nails a dmits. P ainful nails a dmits. O pen Sores d enies. R ashes d enies. N eurologic: Difficulty sleeping d enies. B rain disorder d enies. N umbness a dmits. B alance trouble d enies. C onfusion d enies. F ainting/blackouts d enies. T ingling a dmits. T remors d enies. * Medical History: A rthritis, Back,Hip,and Knee pain, Covid-19, High Blood Pressure, Thyroid, Measles, Mumps, Chicken pox. * Family History: M other: , Foot problems, diagnosed with Family history of arthritis. F ather: , diagnosed with Diabetic - NIDDM, Family history of arthritis. * Social History: T obacco Use: T obacco use other than smoking A re you an other tobacco user? N o Tobacco Control (Standard) T obacco use: N onsmoker D rugs/Alcohol: D rugs H ave you used drugs other than those for medical reasons in the past 12 months? N o M iscellaneous: C affeine: yes, frequency:, 1-2 cups per day. Children: yes. Exercise: no. Marital status: . Occupation: Retired. D rug/Alcohol: A SILVANO-C (Standard) D id you have a drink containing alcohol in the past year? Y es H ow often did you have a drink containing alcohol in the past year? N ever (0 point) H ow many drinks did you have on a typical day when you were drinking in the past year? 1 or 2 drinks (0 point) H ow often did you have six or more drinks on one occasion in the past year? N ever (0 point) P oints 0 I nterpretation N egative * Medications: T aking Vitamin D3 , Taking Levothyroxine Sodium 100 MCG Tablet 1 tablet in the morning on an empty stomach Orally Once a day , Taking Tylenol , Taking Losartan Potassium 25 MG Tablet 1 tablet Orally Once a day , Taking Furosemide 20 MG Tablet 1 tablet Orally Once a day * Allergies: A spirin. Objective: * Vitals: Assessment: Plan: * Treatment: * Images: * The named appointment provid er may or may not be the originator of this progress note, and it is not deemed complete until electronically signed by the appointment provider. Sign off status: Pending * Provider: Jessee Whaley, MYKEL Date: 0 03/08/2025 Generated for Nicolás feldman/Ned/Cori on: 1 08:36 PM EDT
--- OUTSIDE RECORDS SUMMARY | 2025-07-05 11:30 | XMS_ITS ---
Author Organization [facility] Address [address] [place] [address] Care Team Providers Care Gore Seamer Name Role Phone FontanaTim Primary Care Provider Sivlia Martino Unavailable [phone] Allergies Allergen (clinical drug ingredient) Drug/Non Drug Allergy documented on EMR Reaction Allergy Type Onset Date Status aspirin Aspirin Unknown Drug Allergy Active Medications Medication SIG (Take, Route, Frequency, Duration) Notes Start Date End Date Status Vitamin D3 Active traMADol HCl 50 MG TAKE 1 TABLET BY KAYLEE TH EVERY DAY NEEDED FOR SEVERE PAIN FOR 7 DAYS Oral; Duration: 7 Days Active Levothyroxine Sodium 100 MCG TAKE 1 TABL ET BY MOUTH EVERY DAY IN THE MORNING ON EMPTY STOMACH FOR 90 DAYS Oral; Duration: 90 Days Active Gabapentin 100 MG Oral; Duration: 14 Days Active Losartan Potassium 25 MG Oral; Duration: 60 Days Active Losartan Potassium 25 MG 1 tablet Orally Once a day Active Tylenol Active Levothyroxine Sodium 100 MCG 1 tablet in the morning on an empty stomach Orally Once a day Active Furosemide 20 MG Oral; Duration: 90 Days Active Furosemide 20 MG 1 tablet Orally Once a day Active Encounters Encounter Location Date Provider Diagnosis [facility] [address] [place] [address] 07/05/2025 Silvia Whaley Plan Of Treatment Next Appt Details Provider Name:Silvia mariee, 09/20/2025 01:30:00 PM, [address] [place], [address], Progress Notes * Morelia BIRD EDOB:1940 (84 yo F)Acc No.[id number]:07/05/2025 Progress Note Patient: Morelia MCNEAL Provider: Jessee Whaley DPM :1940 A ge:84 Y S ex:Female Date:07/05/2025 Address:[address] [place] [address], [place], [id number] Pcp:Tim Fontana Subjective: * Chief Complaints: * * Medical History: A rthritis, Back,Hip,and Knee pain, Covid-19, High Blood Pressure, Thyroid, Measles, Mumps, Chicken pox. * Medications: T aking Vitamin D3 , Taking Levothyroxine Sodium 100 MCG Tablet 1 tablet in the morning on an empty stomach Orally Once a day , Taking Tylenol , Taking Losartan Potassium 25 MG Tablet 1 tablet Orally Once a day , Taking Furosemide 20 MG Tablet 1 tablet Orally Once a day , Taking Furosemide 20 MG Tablet Oral , Taking Losartan Potassium 25 MG Tablet Oral , Taking Gabapentin 100 MG Capsule Oral , Taking Levothyroxine Sodium 100 MCG Tablet TAKE 1 TABLET BY MOUTH EVERY DAY IN THE MORNING ON EMPTY STOMACH FOR 90 DAYS Oral , Taking traMADol HCl 50 MG Tablet TAKE 1 TABLET BY MOUTH EVERY DAY NEEDED FOR SEVERE PAIN FOR 7 DAYS Oral * Allergies: A spirin. Objective: * Vitals: Assessment: Plan: * Treatment: * Images: * The named appointment provid er may or may not be the originator of this progress note, and it is not deemed complete until electronically signed by the appointment provider. Sign off status: Pending * Provider: Jessee Whaley DPM Date: 0 07/05/2025 Generated for Nicolás feldman/Ned/Cori on: 08:36 PM EDT
--- NOTE | ~2025-08-07 | CT_ITS ---
CLINICAL HISTORY: LLQ pain CT abdomen and pelvis with contrast Comparison: CT/SR - CT ABDOMEN PELVIS WITH IV CONTRAST - 09/20/2024 11:49 AM EST Findings: There is a small hiatal hernia. Liver, gallbladder, spleen, adrenal glands and pancreas are unremarkable. No hydronephrosis of either kidney. There is a 2 cm left renal cyst present. No ureteral stones seen. No bowel obstruction, pneumoperitoneum, or pneumatosis. There are scattered colonic diverticula, however no evidence of diverticulitis. Fat containing umbilical hernia. Pelvic contents unremarkable. Normal appendix. Multilevel degenerative changes of the lumbar spine. IMPRESSION: No acute findings. This document has been electronically signed by: Porfirio Dugan MD on 08/08/2025 00:53:36
[2025-08-07 20:08] VITALS: BP 183/78; PULSE 77; RESP 18; TEMP 36.7; O2SAT 95; BMI 34.4
--- NOTE | 2025-08-07 20:18 | ED.GENADULT ---
HPI - General Adult General Chief complaint: Abdominal Pain Stated complaint: abd pain, nausea, fever Time Seen by Provider: 08/07/25 22:08 Source: patient and family (son) Mode of arrival: ambulatory Limitations: no limitations History of Present Illness ED Provider: LORELEI STEELE PA-C HPI narrative: 84 yo F with PMH significant for HTN presents to the ED today for evaluation of abdominal pain x this morning. Reports BM this morning that requiring significant straining . States stool was normal consistency. Denies melena/hematochezia/BRBPR. After passing BM, she reports abrupt onset of LLQ abdominal pain radiating to umbilicus. Admits to decreased appetite, subjective fevers, and nausea. Attempted to take a sip of water later in the day however vomited this up. Reports feeling generally weak and dehydrated. States she has not been drinking enough water. Denies hx of abdominal surgeries. She has known umbilical hernia, denies prior incarceration. Denies hx of diverticulitis. Son at bedside states patient has a long standing history of constipation. She has never had a colonoscopy. Denies urinary sx, diarrhea. Related Data Home Medications ?Medication ?Instructions ?Recorded ?Confirmed furosemide 20 mg tablet mg PO DAILY 02/07/25 levothyroxine 100 mcg tablet mcg PO DAILY 02/07/25 lorazepam 0.5 mg tablet mg PO 02/07/25 losartan 25 mg tablet mg PO DAILY 02/07/25 Previous Rx's ?Medication ?Instructions ?Recorded docusate sodium 100 mg capsule 100 mg PO BID #30 caps 08/08/25 (Colace) polyethylene glycol 3350 17 17 g PO DAILY #510 grams 08/08/25 gram/dose oral powder (Miralax) Allergies Allergy/AdvReac Type Severity Reaction Status Date / Time NSAIDS (Non-Steroidal Allergy Unknown Verified 08/07/25 20:12 Anti-Inflamma zolpidem (From AMBIEN) AdvReac Unknown Intolerance Verified 08/07/25 20:12 Review of Systems Review of Systems: Yes all other systems are reviewed and are negative PMFSH Past Medical History Attestation statement: The following information was validated with the patient. Source: old records reviewed and nursing notes reviewed Social History Social History Alcohol intake: current Alcohol intake frequency: holidays/special occasions only Substance Use Type: Marijuana Physical Exam ED Vital Signs: Vital Signs - 24 hr 08/07/25 20:08 08/08/25 00:46 08/08/25 00:57 Temperature 98.0 F 98.6 F 97.6 F Pulse Rate 77 67 Respiratory Rate 18 16 Blood Pressure 183/78 H 169/54 H Pulse Oximetry 95 98 Oxygen Delivery Method Room Air Room Air BMI result Body Mass Index 34.4 hypertensive, vitals otherwise wnl General: Well appearing, in no acute distress. Skin: Warm, dry, intact. No rashes or lesions. Head: Normocephalic, atraumatic. EENT: Hearing is intact b/l. Conjunctiva clear. PERRLA. EOM intact. Moist mucous membranes.? Neck: Supple without LAD Cardiac: Chest wall symmetric. RRR Lungs: Normal respiratory effort without accessory muscle use. CTA bilaterally Abdomen: distended, soft, nontender, no rebound or guarding, active bs, palpable umbilical hernia, no erythema/ecchymosis, easily reducible Back: No midline spinous or paraspinal tenderness. No step off deformity. Ext: Upper and lower extremities atraumatic, without tenderness, deformity, swelling or erythema Neuro: AOx3. Normal speech. Ambulating with steady gait. Psych: Appropriate mood and affect. Responds appropriately to questions. Course Course Course Narrative: This is an RME done by RONNIE Bell: Additional HPI, ROS, PE not included below will be deferred to primary provider. 84 year old female presents w/ abd pain mostly LLQ w/ nausea and vomiting. Loose stools today CT abd and pelvis w/ contrast at [facility] 06/16/25 w/ fat containing left internal hernia and umbilical hernia Plan- labs Reevaluation(s) Reevaluation #1: cbc without leukocytosis . no anemia, h&h stable. Chemistry without acute electrolyte abnormality requiring intervention. BUN mildly elevated at 22, normal creatinine. she is mildly dehydrated. Random glucose 162, no anion gap. Lipase and liver function WNL. Urinalysis showing large blood and urine RBCs, no infection. CT scan of the ultrasound shows constipation charge. There is a left renal cyst, likely contributing to hematuria. > discussed workup results with patient and her son at bedside. Advised she be placed on a bowel regimen of MiraLax and Colace. Advised outpatient follow up. She states she feels well and is anxious for discharge home. tolerating PO. Patient has remained stable throughout ED visit today. Discussed worrisome signs and symptoms and when to return to the ED. All questions answered at this time. Patient is agreeable with disposition and stable for discharge. Medications Administered Discontinued Medications Generic Name Dose Route Start Last Admin Trade Name Freq PRN Reason Stop Dose Admin Sodium Chloride 1,000 mls @ 999 mls/hr 08/07/25 22:30 08/08/25 01:53 Ns IV 08/07/25 23:30 Infused .Q1H1M KRYSTIAN Infusion Acetaminophen 1,000 mg in 100 mls @ 400 mls/hr 08/07/25 23:34 08/08/25 00:07 Ofirmev IV 08/07/25 23:48 Infused ONCE ONE Infusion Iohexol 85 ml 08/08/25 00:01 08/08/25 00:02 Iohexol 350 Mg/Ml 100 Ml Infus..Btl IV 08/08/25 00:02 85 ml ONCE ONE Administration Ondansetron HCl 4 mg 08/07/25 23:34 08/07/25 23:42 Ondansetron Hcl 4 Mg/2 Ml Vial IVPUSH 08/07/25 23:35 4 mg ONCE ONE Administration Procedures Procedure Narrative Procedure Narrative: Ultrasound-guided IV 20 gauge 1-3/4 inch IV placed in left upper extremity. Adequate blood return, flushes well secured with Tegaderm. Performed by Teodora Moura PA-C Medical Decision Making Medical Decision Making MDM Narrative: 84 yo F with PMH significant for HTN presents to the ED today for evaluation of abdominal pain x this morning. Hypertensive, vitals are otherwise WNL. Afebrile. She is generally well-appearing and in no acute distress. on exam, abdomen is distended, soft, nontender, no rebound or guarding, active bs, palpable umbilical hernia, no erythema/ecchymosis, easily reducible, no cvat. Differential diagnoses: appendicitis, diverticulitis, diverticulosis, UTI, constipation, gastroenteritis, gastritis Abdominal exam without peritoneal signs. No evidence of acute abdomen at this time. Well appearing. Low suspicion for acute hepatobiliary disease (including acute cholecystitis), acute infectious processes (pneumonia, hepatitis, pyelonephritis, PID, TOA), vascular catastrophe, bowel obstruction or viscus perforation. Presentation not consistent with other acute, emergent causes of abdominal pain at this time. Plan: labs, UA, CT AP, pain control, fluids, serial reassessment Differential Diagnosis Differential Diagnoses: The differential diagnosis associated with the presentation includes as above. Admission/Observation Not indicate Lab Data MDM Lab Attestation statement: I reviewed the patient's lab results. As above 08/07/25 20:38 08/07/25 20:38 Labs: Lab Results 08/07/25 08/07/25 08/08/25 Range/Units 20:38 20:39 01:03 WBC 6.9 (4.8-10.8) X10*3/uL RBC 4.15 L (4.20-5.50) X10*6/uL Hgb 13.1 (12.0-16.0) g/dl Hct 38.2 (37.0-47.0) % MCV 92.0 (80.0-98.0) fL MCH 31.6 (27.0-33.0) pg MCHC 34.3 (31.0-35.0) g/dl RDW 13.2 (11.0-16.0) % Plt Count 166 (160-400) X10*3/uL MPV 11.8 (9.4-12.3) fL Immature Gran % (Auto) 0.3 (0.0-0.4) % Neut % (Auto) 82.3 H (45-73) % Lymph % (Auto) 12.2 L (20-40) % [place] % (Auto) 4.8 (2-11) % Eos % (Auto) 0.1 (0-4) % Baso % (Auto) 0.3 (0-2) % Lymph # (Auto) 0.8 L (1.2-4.9) X10*3/uL [place] # (Auto) 0.3 (0.1-1.2) X10*3/uL Eos # (Auto) 0.0 (0.0-0.4) X10*3/uL Baso # (Auto) 0.0 (0.0-0.2) X10*3/uL Abs Immat Gran (auto) 0.02 (0.00-0.03) X10*3/uL Absolute Neuts (auto) 5.7 (2.0-8.3) x10*3/uL Absolute Nucleated RBC 0.000 (0.0-0.012) X10*3/uL Nucleated RBC % (auto) 0.0 (0.0-0.2) /100WBC Sodium 137 (135-145) mmol/L Potassium 4.0 (3.3-5.1) mmol/L Chloride 106 (96-108) mmol/L Carbon Dioxide 23 (22-29) mmol/L Anion Gap 12 (12-20) BUN 22 H (9-16) mg/dL Creatinine 0.85 (0.5-1.4) mg/dL Estim Creat Clear Calc 47.9 Estimated GFR > 60 Random Glucose 162 H (60-115) mg/dL Calcium 9.1 (8.4-10.2) mg/dL Magnesium 2.3 (1.6-2.6) mg/dL Total Bilirubin 0.8 (0.0-1.0) mg/dL AST 24 (5-31) U/L ALT 19 (0-31) U/L Alkaline Phosphatase 73 (39-117) U/L Total Protein 6.9 (6.5-8.0) g/dL Albumin 4.3 (3.5-5.0) g/dL Lipase 15 (8-78) U/L Urine Color Yellow Urine Appearance Clear Urine pH 6.0 (5.0-9.0) Ur Specific [place] >= 1.030 H (1.005-1.025) Urine Protein Negative (Neg-Trace) mg/dL Urine Glucose (UA) Negative (Negative) mg/dL Urine Ketones 15 (Negative) mg/dL Urine Blood Large (3+) H (Negative) Urine Nitrite Negative (Negative) Ur Leukocyte Esterase Negative (Negative) Urine RBC >20 H (0-2) /HPF Urine WBC 0-5 (0-5) /HPF Ur Squamous Epith Cells 0-2 (0-2) /HPF Urine Bacteria None Seen (None Seen) Hyaline Casts 0-2 (0-2) /LPF COVID-19 (ИВАН) Negative (Negative) COVID-19 Clin Com See Note Influenza Type A (ROZ) Negative (Negative) Influenza Type B (ROZ) Negative (Negative) Influenza A & B Note See Note Independent Interpretation I performed an independent interpretation of an: CT Scan Interpretation: CT abdomen/pelvis without bowel obstruction Radiology Impression Discussion of test interpretation with radiology: I have reviewed the radiologist's reading. Radiologist Impression: Procedure(s): CT abdomen pelvis w IV con Accession Number(s): [id number] cc: TIM ANTONIO MD; Lorelei Steele~ Report Number: [id number]: Total DLP = 1091.00 mGy-cm Reason for Exam: LLQ pain CLINICAL HISTORY: LLQ pain CT abdomen and pelvis with contrast Comparison: CT/SR - CT ABDOMEN PELVIS WITH IV CONTRAST - 09/20/2024 11:49 AM EST Findings: There is a small hiatal hernia. Liver, gallbladder, spleen, adrenal glands and pancreas are unremarkable. No hydronephrosis of either kidney. There is a 2 cm left renal cyst present. No ureteral stones seen. No bowel obstruction, pneumoperitoneum, or pneumatosis. There are scattered colonic diverticula, however no evidence of diverticulitis. Fat containing umbilical hernia. Pelvic contents unremarkable. Normal appendix. Multilevel degenerative changes of the lumbar spine. IMPRESSION: No acute findings. This document has been electronically signed by: Porfirio Dugan MD on 08/08/2025 00:53:36 Independent Historian Clinical information obtained from an independent historian. History obtained from or confirmed by: Other (son) External Record Review External record reviewed: Inpatient record, Office record and Outpatient record Prescription Management I considered prescription management with: Pain Medication Chronic Conditions Patient?s care impacted by: Other (constipation) Social Determinants Patient?s care significantly limited by Social Determinants of Health including: Other Social Determinant of Health Critical Care Time Critical Care Time Critical Care Time: No Discharge Plan Discharge Clinical Impression: Constipation Patient Disposition: Home, Self-Care Instructions: Constipation (ED) Additional Instructions: You were evaluated in the ED today for abdominal pain. Your blood work shows that you are mildly dehydrated, otherwise reassuring. You were given IV fluids in the ED today. Your urine does not demonstrate infection. The CT scan of your abdomen shows that you are constipated. There is also an incidental finding of a left renal cyst. Please follow up with Urology regarding this. Referral provided. Call them to establish care. They will not call you. I am starting you on a bowel regimen. Take MiraLax daily until you are passing large bowel movements. Take Colace twice daily. Follow up with your PCP. Return with any new or worsening symptoms. In the case of an emergency call 911. Prescriptions: New polyethylene glycol 3350 [Miralax] 17 gram/dose powder 17 g PO DAILY Qty: 510 0RF docusate sodium [Colace] 100 mg capsule 100 mg PO BID Qty: 30 0RF No Action losartan 25 mg tablet PO DAILY levothyroxine 100 mcg tablet PO DAILY furosemide 20 mg tablet PO DAILY lorazepam 0.5 mg tablet PO Referrals: [facility] [Provider Group, Urology] Tim Antonio MD [Primary Care Provider, Internal Medicine] Interventions: ED Discharge Assessment Last Done: 08/08/25 02:04 Discharge Date/Time: 08/08/25 02:09 Print Language: Wolof
--- OUTSIDE RECORDS SUMMARY | 2025-08-07 20:36 | XMS_ITS | Patient Health Record ---
Author Organization [facility] Address [address] [place] [id number] Care Team Providers Care Certified Rehabilitation Counselor Name Role Phone KD AUNG Unavailable [phone] GUSTAVO MUSE Unavailable [phone] Allergies Allergen (clinical drug ingredient) Drug/Non Drug Allergy documented on EMR Reaction Allergy Type Onset Date Status aspirin Aspirin Unknown Drug Allergy Active Reason For Referral Reason Evaluate & Treat Diagnosis 1 Callus (L84) Referral Organization [facility] Referring Provider First Name AUNG Referring Provider Last Name KD Referring Provider Speciality Internal edicine Referred Provider Specialty Podiatry General Notes Moraima Calloway 2024 04:16:26 PM > [facility], [phone] Clinical Notes Maylin Guaman 02:38:33 PM > Scheduled for 01/11/25 at 10:30 am. Pt aware Referral Priority Routine Reason [facility] Diagnosis 1 Tear of right rotato r cuff, unspecified tear extent, unspecified whether traumatic (M75.101) Referral Organization [facility] Referring Provider First Name AUNG Referring Provider Last Name KD Referring Provider Speciality Internal edicine Referred Provider Specialty Orthopedic S urgery General Notes RAMIN ROBERSON 0 12/02/2024 01:35:22 PM >information sent over to [facility] both x ray and MRI p- , [phone] Clinical Notes Bethel Summers 10:49:55 AM > Refaxed twice., Bethel Summers 12/29/2024 10:33:08 AM > Appointment booked - February 07 2PM. - David Referral Priority Routine Reason Evaluate & Treat A t Home Therapy Diagnosis 1 Right shoulder pain, unspecified chronicity (M25.511) Diagnosis 2 Tear of right rotato r cuff, unspecified tear extent, unspecified whether traumatic (M75.101) Referral Organization [facility] [address] Referring Provider First Name AUNG Referring Provider Last Name KD Referring Provider Speciality Internal M edicine Referred Provider Specialty Physical The rapist General Notes Rosie Toth 0 07/26/2025 02:59:48 PM > Referral to [facility] and faxed, p. [phone], f. [phone] Referral Priority Routine Medications Medication SIG (Take, Route, Frequency, Duration) Notes Start Date End Date Status Furosemide 20 MG TAKE 1 TABLET BY KAYLEE EVERY DAY; Duration: 90 Active Losartan Potassium 25 MG 1 tablet Orally Once a day; Duration: 90 days Active traMADol HCl 50 MG 1 tablet as needed f or severe pain Orally Once a day; Duration: 7 days 11/30/2024 Not-Taking Levothyroxine Sodium 100 MCG TAKE 1 TABLET BY MOUTH EVERY DAY IN THE MORNING ON EMPTY STOMACH FOR 90 DAYS Oral; Duration: 90 Days Active Vitamin D-3 125 MCG (5000 UT) as directed Orally Active Social History Tobacco Use: Social History Observation Description Date Details (start date - stop date) Former Smoker NA - NA Tobacco Use/Smoking Question Answer Notes Are you [...] yrs ago smoked 1/2 pack a day Problems Problem Type SNOMED Code ICD Code Onset Dates Problem Status W/U Status Risk Notes Problem Vitamin B>12< deficiency anaemia (39670515) Vitamin B12 deficiency anemia, unspecified (D51.9) Active confirmed Problem Hypothyroidism (01272943) Other specified hypothyroidism (E03.8) Active confirmed Problem Hypothyroidism (87840604) Hypothyroidism, unspecified (E03.9) Active confirmed Problem Vitamin D deficiency (22625908) Vitamin D deficiency, unspecified (E55.9) Active confirmed Problem Hyperlipidemia (35039680) Hyperlipidemia, unspecified (E78.5) Active confirmed Problem Constipation (11479469) Constipation, unspecified (K59.00) Active confirmed Problem Osteoarthritis of knee (564930601) Osteoarthritis of knee, unspecified (M17.9) Active confirmed Problem Pain in limb (31244816) Pain in arm, unspecified (M79.603) Active confirmed Problem Hyperglycemia due to type 2 diabetes mellitus (490705043845569) Type 2 diabetes mellitus with hyperglycemia (E11.65) Active confirmed Problem Essential hypertension (69547508) Essential hypertension (I10) Active confirmed Problem Shoulder joint pain (230747263) Shoulder pain, unspecified chronicity, unspecified laterality (M25.519) Active confirmed Problem Hyperlipidaemia (11824821) Hyperlipidemia, unspecified hyperlipidemia type (E78.5) Active confirmed Problem Acquired hypothyroidism (515995664) Acquired hypothyroidism (E03.9) Active confirmed Problem Annual health maintenance examination (11287482) Annual physical exam (Z00.00) Active confirmed Problem Vitamin D deficiency (31489018) Vitamin D deficiency (E55.9) Active confirmed Problem Dyslipidemia (656346900) Dyslipidemia (E78.5) Active confirmed Problem Disorder due to type 2 diabetes mellitus (218409031) 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) Active confirmed Problem Vitamin B>12< deficiency anaemia (49243203) Anemia due to vitamin B12 deficiency, unspecified B12 deficiency type (D51.9) Active confirmed Problem Hyperthyroidism (60391898) Hyperthyroidism (E05.90) Active confirmed Problem Tear film insufficiency (56697458) Dry eye (H04.129) Active confirmed Problem Lesion of liver (016255530) Liver lesion (K76.9) Active confirmed Problem Lipid screening (014570225) Lipid screening (Z13.220) Active confirmed Problem Rupture of right rotator cuff (35345490686246344 ) Tear of right rotator cuff, unspecified tear extent, unspecified whether traumatic (M75.101) Active confirmed Problem Generalized osteoarthritis (772389315) Generalized osteoarthritis (M15.9) Active confirmed Problem Shoulder joint pain (471664582) Shoulder pain, right (M25.511) Active confirmed Problem Callus (648277443) Callus (L84) Active confirme d Vital Signs Heart Rate 74 /min 07/26/2025 Oximetry 98 % 07/26/2025 Blood pressure diastolic 80 mm Hg 07/26/2025 Height 60 in 07/26/2025 Blood pressure systolic 130 mm Hg 07/26/2025 Weight 184.6 lbs 07/26/2025 BMI 36.05 kg/m2 07/26/2025 Encounters Encounter Location Date Provider Diagnosis [facility] [address] [place], [place] 11/23/2024 AUNG KD Pain in arm, unspeci fied M79.603 ; Liver lesion K76.9 ; Shoulder pain, unspecified chronicity, unspecified laterality M25.519 ; Hypothyroidism, unspecified E03.9 and Generalized osteoarthritis M15.[address] [facility] [address] [place] [place], [place] 11/30/2024 AUNG KD Shoulder pain, right M25.511 ; Liver lesion K76.9 ; Hypothyroidism, unspecified E03.9 ; Generalized osteoarthritis M15.9 and Plantar callus L84 [facility] [address] [place], [place] 07/26/2025 AUNG KD Liver lesion K76.9 ; Shoulder pain, right M25.511 ; Hypothyroidism, unspecified E03.9 ; Generalized osteoarthritis M15.9 ; Plantar callus L84 and Encounter for examination of blood pressure without abnormal findings Z01.[address] [facility] [address] [place], [place] 09/08/2024 TALAL MUSE [facility] [address] [facility] [address] [place] [address] 10/04/2024 TALAL MUSE [facility] [address] [facility] [address] [place] [address] 10/06/[address] [facility] [address] [place] [address] 11/15/[address] [facility] [address] [place] [address] 11/25/[address] [facility] [address] [place] [address] 11/26/2024 TALAL MUSE [facility] [address] [facility] [address] [place] [address] 11/29/2024 AUNG KD [facility] [address] [facility] [address] [place] [address] 12/01/2024 TALAL MUSE [facility] [address] [facility] [address] [place] [address] 12/01/[address] [facility] [address] [place] [address] 12/01/2024 AUNG KD [facility] [address] [place] [address] 12/03/2024 AUNG KD [facility] [address] [facility] [address] [place] [address] 12/13/2024 AUNG KD [facility] [address] [place] [address] 12/15/2024 TALAL MUSE [facility] [address] [facility] [address] [place] [address] 12/16/2024 TALAL MUSE [facility] [address] [facility] [address] [place] [address] 12/27/2024 TALAL MUSE [facility] [address] [facility] [address] [place] [address] 01/10/2025 AUNG KD [facility] [address] [place] [address] 02/25/2025 AUNG KD [facility] [address] [place] [address] 05/30/2025 AUNG KD [facility] [address] [place] [address] 06/13/2025 AUGN KD [facility] [address] [place] [address] 06/14/2025 AUNG KD [facility] [address] [place] [address] 06/15/2025 AUNG KD [facility] [address] [facility] [place] [address] 06/15/2025 AUNG KD [facility] [address] [facility] [place] [address] 06/24/2025 AUNG KD [facility] [address] [place] [address] 07/14/2025 AUNG KD [facility] [address] [facility] 08/03/2025 AUNG KD Assessments Encounter Date Diagnosis (ICD Code) Assessment Notes Treatment Notes Treatment Clinical Notes Section Notes 11/23/2024 Pain in arm, unspecified (ICD-10 - M79.603) Morelia is a pleasant 84-year-old female with a [...] Dictation was accomplished with the use of [employer] voice recognition software, which is prone to medical misidentifications and grammatical errors. This are unintentional and the practitioner does try to identify and correct these, but some could still be present. Please do not hesitate to contact practitioner for clarification. 11/23/2024 Liver lesion (ICD-10 - K76.9) Morelia is a pleasant 84-year-old female with a [...] Dictation was accomplished with the use of [employer] voice recognition software, which is prone to medical misidentifications and grammatical errors. This are unintentional and the practitioner does try to identify and correct these, but some could still be present. Please do not hesitate to contact practitioner for clarification. 11/30/2024 Liver lesion (ICD-10 - K76.9) Morelia is a pleasant 84-year-old female with a [...] Dictation was accomplished with the use of [employer] voice recognition software, which is prone to medical misidentifications and grammatical errors. This are unintentional and the practitioner does try to identify and correct these, but some could still be present. Please do not hesitate to contact practitioner for clarification. 11/30/2024 Shoulder pain, right (ICD-10 - M25.511) Morelia is a pleasant 84-year-old female with a [...] Dictation was accomplished with the use of [employer] recognition software, which is prone to medical misidentifications and grammatical errors. This are unintentional and the practitioner does try to identify and correct these, but some could still be present. Please do not hesitate to contact practitioner for clarification. 07/26/2025 Liver lesion (ICD-10 - K76.9) Morelia is an 84-year-old female with a past medical history of hypothyroidism, hypertension, anxiety, carpal tunnel syndrome and hyperlipidemia who presents to the office today for follow-up #Bilateral knee pain: Evidence of osteoarthritis from previous x-rays. Declines [facility] referral #Right shoulder full-thickness tear:She did have an MRI conducted of her right shoulder joint that did show a full-thickness tear through the supraspinatus with tendon refraction. This was performed on 12/01/2024. Patient did see orthopedics through [facility] and they did not deem that surgery was a good fit for the patient. She admits that she would be open to performing physical therapy. Placing physical therapy referral for home therapy as patient admits that it would be difficult for her to obtain office visits. I feel as though patient would benefit from physical therapy as opposed to a continuous tramadol prescription. #Incidental finding of hepatic lesion:At last appointment patient had an MRI of her abdomen placed with and without contrast due to an incidental finding of a liver lesion that was found at her emergency department visit at [facility] back in October. The report states hypodense lesion dome of right hepatic lobe. After discussing risk versus benefits of having the MRI done today the patient ultimately decided to not have the MRI completed #Constipation: Utilize milk of magnesia as needed and increasing fiber. #Neck pain: Declines C-Spine imaging. More than likely arthritis. #Toenail concern/wart: Continue following with podiatry #Hypothyroidism: Continue levothyroxine 100 mcg tablets, will obtain fasting blood panel #Hyperlipidemia: Continue monitoring, obtaining blood work #Hypertension: Continue losartan 25 mg tablets All questions have been answered to patient's satisfaction. Patient verbalized understanding of diagnosis and treatments explained. Advised to call sooner prior to next visit it any questions/concerns arise. Case discussed with Shyann COX who reviewed the assessment and plan. Chart, medications, labs, vital signs reviewed. Dictation was accomplished with the use of [employer] voice recognition software, which is prone to medical misidentifications and grammatical errors. This are unintentional and the practitioner does try to identify and correct these, but some could still be present. Please do not hesitate to contact practitioner for clarification. #Osteoarthritis: Continue calcium and vitamin D supplementation All questions have been answered to patient's satisfaction. Patient verbalized understanding of diagnosis and treatments explained. Advised to call sooner prior to next visit it any questions/concerns arise. Case discussed with Shyann COX who reviewed the assessment and plan. Chart, medications, labs, vital signs reviewed. Dictation was accomplished with the use of [employer] voice recognition software, which is prone to medical misidentifications and grammatical errors. This are unintentional and the practitioner does try to identify and correct these, but some could still be present. Please do not hesitate to contact practitioner for clarification. 07/26/2025 Hypothyroidism, unspecified (ICD-10 - E03.9) Morelia is an 84-year-old female with a past medical history of hypothyroidism, hypertension, anxiety, carpal tunnel syndrome and hyperlipidemia who presents to the office today for follow-up #Bilateral knee pain: Evidence of osteoarthritis from previous x-rays. Declines [facility] referral #Right shoulder full-thickness tear:She did have an MRI conducted of her right shoulder joint that did show a full-thickness tear through the supraspinatus with tendon refraction. This was performed on 12/01/2024. Patient did see orthopedics through [facility] and they did not deem that surgery was a good fit for the patient. She admits that she would be open to performing physical therapy. Placing physical therapy referral for home therapy as patient admits that it would be difficult for her to obtain office visits. I feel as though patient would benefit from physical therapy as opposed to a continuous tramadol prescription. #Incidental finding of hepatic lesion:At last appointment patient had an MRI of her abdomen placed with and without contrast due to an incidental finding of a liver lesion that was found at her emergency department visit at [facility] back in October. The report states hypodense lesion dome of right hepatic lobe. After discussing risk versus benefits of having the MRI done today the patient ultimately decided to not have the MRI completed #Constipation: Utilize milk of magnesia as needed and increasing fiber. #Neck pain: Declines C-Spine imaging. More than likely arthritis. #Toenail concern/wart: Continue following with podiatry #Hypothyroidism: Continue levothyroxine 100 mcg tablets, will obtain fasting blood panel #Hyperlipidemia: Continue monitoring, obtaining blood work #Hypertension: Continue losartan 25 mg tablets All questions have been answered to patient's satisfaction. Patient verbalized understanding of diagnosis and treatments explained. Advised to call sooner prior to next visit it any questions/concerns arise. Case discussed with Shyann COX who reviewed the assessment and plan. Chart, medications, labs, vital signs reviewed. Dictation was accomplished with the use of [employer] voice recognition software, which is prone to medical misidentifications and grammatical errors. This are unintentional and the practitioner does try to identify and correct these, but some could still be present. Please do not hesitate to contact practitioner for clarification. #Osteoarthritis: Continue calcium and vitamin D supplementation All questions have been answered to patient's satisfaction. Patient verbalized understanding of diagnosis and treatments explained. Advised to call sooner prior to next visit it any questions/concerns arise. Case discussed with Shyann COX who reviewed the assessment and plan. Chart, medications, labs, vital signs reviewed. Dictation was accomplished with the use of [employer] voice recognition software, which is prone to medical misidentifications and grammatical errors. This are unintentional and the practitioner does try to identify and correct these, but some could still be present. Please do not hesitate to contact practitioner for clarification. 07/26/2025 Shoulder pain, right (ICD-10 - M25.511) Morelia is an 84-year-old female with a past medical history of hypothyroidism, hypertension, anxiety, carpal tunnel syndrome and hyperlipidemia who presents to the office today for follow-up #Bilateral knee pain: Evidence of osteoarthritis from previous x-rays. Declines [facility] referral #Right shoulder full-thickness tear:She did have an MRI conducted of her right shoulder joint that did show a full-thickness tear through the supraspinatus with tendon refraction. This was performed on 12/01/2024. Patient did see orthopedics through [facility] and they did not deem that surgery was a good fit for the patient. She admits that she would be open to performing physical therapy. Placing physical therapy referral for home therapy as patient admits that it would be difficult for her to obtain office visits. I feel as though patient would benefit from physical therapy as opposed to a continuous tramadol prescription. #Incidental finding of hepatic lesion:At last appointment patient had an MRI of her abdomen placed with and without contrast due to an incidental finding of a liver lesion that was found at her emergency department visit at [facility] back in October. The report states hypodense lesion dome of right hepatic lobe. After discussing risk versus benefits of having the MRI done today the patient ultimately decided to not have the MRI completed #Constipation: Utilize milk of magnesia as needed and increasing fiber. #Neck pain: Declines C-Spine imaging. More than likely arthritis. #Toenail concern/wart: Continue following with podiatry #Hypothyroidism: Continue levothyroxine 100 mcg tablets, will obtain fasting blood panel #Hyperlipidemia: Continue monitoring, obtaining blood work #Hypertension: Continue losartan 25 mg tablets All questions have been answered to patient's satisfaction. Patient verbalized understanding of diagnosis and treatments explained. Advised to call sooner prior to next visit it any questions/concerns arise. Case discussed with Shyann COX who reviewed the assessment and plan. Chart, medications, labs, vital signs reviewed. Dictation was accomplished with the use of [employer] voice recognition software, which is prone to medical misidentifications and grammatical errors. This are unintentional and the practitioner does try to identify and correct these, but some could still be present. Please do not hesitate to contact practitioner for clarification. #Osteoarthritis: Continue calcium and vitamin D supplementation All questions have been answered to patient's satisfaction. Patient verbalized understanding of diagnosis and treatments explained. Advised to call sooner prior to next visit it any questions/concerns arise. Case discussed with Shyann COX who reviewed the assessment and plan. Chart, medications, labs, vital signs reviewed. Dictation was accomplished with the use of [employer] voice recognition software, which is prone to medical misidentifications and grammatical errors. This are unintentional and the practitioner does try to identify and correct these, but some could still be present. Please do not hesitate to contact practitioner for clarification. 11/30/2024 Hypothyroidism, unspecified (ICD-10 - E03.9) Morelia is a pleasant 84-year-old female with a [...] Dictation was accomplished with the use of [employer] voice recognition software, which is prone to medical misidentifications and grammatical errors. This are unintentional and the practitioner does try to identify and correct these, but some could still be present. Please do not hesitate to contact practitioner for clarification. 11/23/2024 Shoulder pain, unspecified chronicity, unspecified laterality (ICD-10 - M25.519) Morelia is a pleasant 84-year-old female with a [...] Dictation was accomplished with the use of [employer] voice recognition software, which is prone to medical misidentifications and grammatical errors. This are unintentional and the practitioner does try to identify and correct these, but some could still be present. Please do not hesitate to contact practitioner for clarification. 11/23/2024 Hypothyroidism, unspecified (ICD-10 - E03.9) Morelia is a pleasant 84-year-old female with a [...] Dictation was accomplished with the use of [employer] voice recognition software, which is prone to medical misidentifications and grammatical errors. This are unintentional and the practitioner does try to identify and correct these, but some could still be present. Please do not hesitate to contact practitioner for clarification. 11/30/2024 Generalized osteoarthritis (ICD-10 - M15.9) Morelia is a pleasant 84-year-old female with a [...] Dictation was accomplished with the use of [employer] voice recognition software, which is prone to medical misidentifications and grammatical errors. This are unintentional and the practitioner does try to identify and correct these, but some could still be present. Please do not hesitate to contact practitioner for clarification. 07/26/2025 Generalized osteoarthritis (ICD-10 - M15.9) Morelia is an 84-year-old female with a past medical history of hypothyroidism, hypertension, anxiety, carpal tunnel syndrome and hyperlipidemia who presents to the office today for follow-up #Bilateral knee pain: Evidence of osteoarthritis from previous x-rays. Declines [facility] referral #Right shoulder full-thickness tear:She did have an MRI conducted of her right shoulder joint that did show a full-thickness tear through the supraspinatus with tendon refraction. This was performed on 12/01/2024. Patient did see orthopedics through [facility] and they did not deem that surgery was a good fit for the patient. She admits that she would be open to performing physical therapy. Placing physical therapy referral for home therapy as patient admits that it would be difficult for her to obtain office visits. I feel as though patient would benefit from physical therapy as opposed to a continuous tramadol prescription. #Incidental finding of hepatic lesion:At last appointment patient had an MRI of her abdomen placed with and without contrast due to an incidental finding of a liver lesion that was found at her emergency department visit at [facility] back in October. The report states hypodense lesion dome of right hepatic lobe. After discussing risk versus benefits of having the MRI done today the patient ultimately decided to not have the MRI completed #Constipation: Utilize milk of magnesia as needed and increasing fiber. #Neck pain: Declines C-Spine imaging. More than likely arthritis. #Toenail concern/wart: Continue following with podiatry #Hypothyroidism: Continue levothyroxine 100 mcg tablets, will obtain fasting blood panel #Hyperlipidemia: Continue monitoring, obtaining blood work #Hypertension: Continue losartan 25 mg tablets All questions have been answered to patient's satisfaction. Patient verbalized understanding of diagnosis and treatments explained. Advised to call sooner prior to next visit it any questions/concerns arise. Case discussed with Shyann COX who reviewed the assessment and plan. Chart, medications, labs, vital signs reviewed. Dictation was accomplished with the use of [employer] voice recognition software, which is prone to medical misidentifications and grammatical errors. This are unintentional and the practitioner does try to identify and correct these, but some could still be present. Please do not hesitate to contact practitioner for clarification. #Osteoarthritis: Continue calcium and vitamin D supplementation All questions have been answered to patient's satisfaction. Patient verbalized understanding of diagnosis and treatments explained. Advised to call sooner prior to next visit it any questions/concerns arise. Case discussed with Shyann COX who reviewed the assessment and plan. Chart, medications, labs, vital signs reviewed. Dictation was accomplished with the use of [employer] voice recognition software, which is prone to medical misidentifications and grammatical errors. This are unintentional and the practitioner does try to identify and correct these, but some could still be present. Please do not hesitate to contact practitioner for clarification. 07/26/2025 Plantar callus (ICD-10 - L84) Morelia is an 84-year-old female with a past medical history of hypothyroidism, hypertension, anxiety, carpal tunnel syndrome and hyperlipidemia who presents to the office today for follow-up #Bilateral knee pain: Evidence of osteoarthritis from previous x-rays. Declines [facility] referral #Right shoulder full-thickness tear:She did have an MRI conducted of her right shoulder joint that did show a full-thickness tear through the supraspinatus with tendon refraction. This was performed on 12/01/2024. Patient did see orthopedics through [facility] and they did not deem that surgery was a good fit for the patient. She admits that she would be open to performing physical therapy. Placing physical therapy referral for home therapy as patient admits that it would be difficult for her to obtain office visits. I feel as though patient would benefit from physical therapy as opposed to a continuous tramadol prescription. #Incidental finding of hepatic lesion:At last appointment patient had an MRI of her abdomen placed with and without contrast due to an incidental finding of a liver lesion that was found at her emergency department visit at [facility] back in October. The report states hypodense lesion dome of right hepatic lobe. After discussing risk versus benefits of having the MRI done today the patient ultimately decided to not have the MRI completed #Constipation: Utilize milk of magnesia as needed and increasing fiber. #Neck pain: Declines C-Spine imaging. More than likely arthritis. #Toenail concern/wart: Continue following with podiatry #Hypothyroidism: Continue levothyroxine 100 mcg tablets, will obtain fasting blood panel #Hyperlipidemia: Continue monitoring, obtaining blood work #Hypertension: Continue losartan 25 mg tablets All questions have been answered to patient's satisfaction. Patient verbalized understanding of diagnosis and treatments explained. Advised to call sooner prior to next visit it any questions/concerns arise. Case discussed with Shyann COX who reviewed the assessment and plan. Chart, medications, labs, vital signs reviewed. Dictation was accomplished with the use of [employer] voice recognition software, which is prone to medical misidentifications and grammatical errors. This are unintentional and the practitioner does try to identify and correct these, but some could still be present. Please do not hesitate to contact practitioner for clarification. #Osteoarthritis: Continue calcium and vitamin D supplementation All questions have been answered to patient's satisfaction. Patient verbalized understanding of diagnosis and treatments explained. Advised to call sooner prior to next visit it any questions/concerns arise. Case discussed with Shyann COX who reviewed the assessment and plan. Chart, medications, labs, vital signs reviewed. Dictation was accomplished with the use of [employer] voice recognition software, which is prone to medical misidentifications and grammatical errors. This are unintentional and the practitioner does try to identify and correct these, but some could still be present. Please do not hesitate to contact practitioner for clarification. 11/30/2024 Plantar callus (ICD-10 - L84) Morelia is a pleasant 84-year-old female with a [...] Dictation was accomplished with the use of [employer] voice recognition software, which is prone to medical misidentifications and grammatical errors. This are unintentional and the practitioner does try to identify and correct these, but some could still be present. Please do not hesitate to contact practitioner for clarification. 11/23/2024 Generalized osteoarthritis (ICD-10 - M15.9) Morelia is a pleasant 84-year-old female with a [...] Dictation was accomplished with the use of [employer] voice recognition software, which is prone to medical misidentifications and grammatical errors. This are unintentional and the practitioner does try to identify and correct these, but some could still be present. Please do not hesitate to contact practitioner for clarification. 07/26/2025 Encounter for examination of blood pressure without abnormal findings (ICD-10 - Z01.30) Morelia is an 84-year-old female with a past medical history of hypothyroidism, hypertension, anxiety, carpal tunnel syndrome and hyperlipidemia who presents to the office today for follow-up #Bilateral knee pain: Evidence of osteoarthritis from previous x-rays. Declines [facility] referral #Right shoulder full-thickness tear:She did have an MRI conducted of her right shoulder joint that did show a full-thickness tear through the supraspinatus with tendon refraction. This was performed on 12/01/2024. Patient did see orthopedics through [facility] and they did not deem that surgery was a good fit for the patient. She admits that she would be open to performing physical therapy. Placing physical therapy referral for home therapy as patient admits that it would be difficult for her to obtain office visits. I feel as though patient would benefit from physical therapy as opposed to a continuous tramadol prescription. #Incidental finding of hepatic lesion:At last appointment patient had an MRI of her abdomen placed with and without contrast due to an incidental finding of a liver lesion that was found at her emergency department visit at [facility] back in October. The report states hypodense lesion dome of right hepatic lobe. After discussing risk versus benefits of having the MRI done today the patient ultimately decided to not have the MRI completed #Constipation: Utilize milk of magnesia as needed and increasing fiber. #Neck pain: Declines C-Spine imaging. More than likely arthritis. #Toenail concern/wart: Continue following with podiatry #Hypothyroidism: Continue levothyroxine 100 mcg tablets, will obtain fasting blood panel #Hyperlipidemia: Continue monitoring, obtaining blood work #Hypertension: Continue losartan 25 mg tablets All questions have been answered to patient's satisfaction. Patient verbalized understanding of diagnosis and treatments explained. Advised to call sooner prior to next visit it any questions/concerns arise. Case discussed with Shyann COX who reviewed the assessment and plan. Chart, medications, labs, vital signs reviewed. Dictation was accomplished with the use of [employer] voice recognition software, which is prone to medical misidentifications and grammatical errors. This are unintentional and the practitioner does try to identify and correct these, but some could still be present. Please do not hesitate to contact practitioner for clarification. #Osteoarthritis: Continue calcium and vitamin D supplementation All questions have been answered to patient's satisfaction. Patient verbalized understanding of diagnosis and treatments explained. Advised to call sooner prior to next visit it any questions/concerns arise. Case discussed with Shyann COX who reviewed the assessment and plan. Chart, medications, labs, vital signs reviewed. Dictation was accomplished with the use of [employer] voice recognition software, which is prone to medical misidentifications and grammatical errors. This are unintentional and the practitioner does try to identify and correct these, but some could still be present. Please do not hesitate to contact practitioner for clarification. Plan Of Treatment Pending Test Test Name Order Date X [...] w/o Contrast RT 11/30/2024 LIPID PANEL, STANDARD 07/26/2025 LIPID PANEL, STANDARD 12/21/2021 LIPID PANEL, STANDARD 08/05/2022 LIPID PANEL, STANDARD 11/30/2024 COMPREHENSIVE METABOLIC PANEL 11/30/2024 COMPREHENSIVE METABOLIC PANEL 12/02/2022 COMPREHENSIVE METABOLIC PANEL 08/05/2022 COMPREHENSIVE METABOLIC PANEL 12/21/2021 COMPREHENSIVE METABOLIC PANEL 07/26/2025 BASIC METABOLIC PANEL 11/30/2024 CBC (INCLUDES DIFF/PLT) 11/30/2024 CBC (INCLUDES DIFF/PLT) 12/02/2022 CBC (INCLUDES DIFF/PLT) 08/05/2022 CBC (INCLUDES DIFF/PLT) 12/21/2021 CBC (INCLUDES DIFF/PLT) 07/26/2025 URINALYSIS, COMPLETE 07/26/2025 URINALYSIS, COMPLETE 12/21/2021 URINALYSIS, COMPLETE 08/05/2022 URINALYSIS, COMPLETE 12/08/2023 URINALYSIS, COMPLETE 11/30/2024 URINALYSIS, COMPLETE 12/02/2022 HEMOGLOBIN A1c 07/26/2025 HEMOGLOBIN A1c 08/05/2022 HEMOGLOBIN A1c 12/21/2021 VITAMIN B12 11/30/2024 VITAMIN B12 07/26/2025 T4 (THYROXINE), TOTAL 12/02/2022 TSH 12/02/2022 TSH 12/21/2021 VITAMIN D,25-OH,TOTAL,IA 12/02/2022 VITAMIN D,25-OH,TOTAL,IA 11/30/2024 VITAMIN D,25-OH,TOTAL,IA 07/26/2025 US Duplex Venous Study RT 11/23/2024 TSH+T4F+T3Free 11/30/2024 TSH+T3+Free T4+T3 Free 07/26/2025 Next Appt Details Provider Name:AUNG YI, 02:00:00 PM, [address], [place], [address], Insurance Providers Payer Name Payer Address Payer Phone Subscriber Number Group Number Insured Name Patient Relationship to Insured Coverage Start Date Coverage End Date [employer] Preferred [address] [place] [phone] [id number] MORELIA BIRD Self - patient is the insured 0 Medical (General) History Medical History History ICD Code Hypothyroidism (acquired) E03.9 Hypertension, unspecified type I10 Anxiety F41.9 carpal tunnel syndrome hyperlipidemia Surgical History Surgery Date(Month/Year) breast reduction
--- OUTSIDE RECORDS SUMMARY | 2025-08-07 20:36 | XMS_ITS ---
Author Name [facility] Organization Unknown Encounters Encounter Type Encounter Reason Primary Diagnosis Location Date Ambulatory [facility] 08/31/2024 Care Team Organization Name Specialty Phone Email Start Date End Da te [facility] 2024 [facility] Tim Fontana Primary Care 05/20/2024
--- OUTSIDE RECORDS SUMMARY | 2025-08-07 20:36 | XMS_ITS | Patient Health Record ---
[facility] Address [address] [place] [address] Care Team Providers Care Costume Technician Name Role Phone Tim Fontana Primary Care Provider Silvia Martino Unavailable [phone] Allergies Allergen (clinical drug ingredient) Drug/Non Drug Allergy documented on EMR Reaction Allergy Type Onset Date Status aspirin Aspirin Unknown Drug Allergy Active Reason For Referral Diagnosis 1 Pain in unspecified foot (M79.673) Referring Provider First Name Tim Referring Provider Last Name Addi Referring Provider Speciality Internal M edicine Referred Organization [facility] Juan A Referred Provider Silvia Whaley Referred Address [address] ,[place], [place],[address], Referred Provider Specialty Podiatry Referral Priority Routine Medications Medication SIG (Take, Route, Frequency, Duration) Notes Start Date End Date Status Losartan Potassium 25 MG 1 tablet Orally Once a day Active Tylenol Active Levothyroxine Sodium 100 MCG 1 tablet in the morning on an empty stomach Orally Once a day Active Vitamin D3 Active traMADol HCl 50 MG [...] 25 MG Oral; Duration: 60 Days Active Furosemide 20 MG Oral; Duration: 90 Days Active Furosemide 20 MG 1 tablet Orally Once a day Active Immunizations Vaccine Route Administration Date Status Comme nts Influenza Unknown 04/12/2025 Refused Social History Tobacco Use: Social History Observation [...] W/U Status Risk Notes Problem Plantar wart (85866464) Plantar wart (B07.0) Active confirmed Problem Acquired hallux valgus (32713612) Hallux valgus (acquired), right foot (M20.11) Active confirmed Vital Signs Blood pressure diastolic 80 mm Hg 04/12/2025 Height 5ft2in in 04/12/2025 Blood pressure systolic 130 mm Hg 04/12/2025 Weight 190 lbs 04/12/2025 BMI 34.75 kg/m2 04/12/2025 Encounters Encounter Location Date Provider Diagnosis [facility] [address] 01/11/2025 Silvia Perica Onychomycosis B35.1 ; Plantar wart B07.0 ; Pain in right toe(s) M79.674 ; Pain in left toe(s) M79.675 ; Right foot pain M79.671 ; Pain in right ankle and joints of right foot M25.571 ; Bursitis of intermetatarsal bursa of right foot M77.51 ; Metatarsalgia, right foot M77.41 and Hallux valgus (acquired), right foot M20.11 [facility] [address] 04/12/2025 Silvia Perica Plantar wart B07.0 ; Metatarsalgia, right foot M77.41 ; Onychomycosis B35.1 ; Pain in right toe(s) M79.674 ; Pain in left toe(s) M79.675 ; Right foot pain M79.671 ; Pain in right ankle and joints of right foot M25.571 ; Bursitis of intermetatarsal bursa of right foot M77.51 and Hallux valgus (acquired), right foot M20.11 [facility] [address] [address] 07/05/2025 Silvia Whaley Assessments Encounter Date Diagnosis (ICD Code) Assessment Notes Treatment Notes Treatment Clinical Notes Section Notes 01/11/2025 Plantar wart (ICD-10 - B07.0) 01/11/2025 Onychomycosis (ICD-10 - B35.1) 04/12/2025 Plantar wart (ICD-10 - B07.0) 04/12/2025 Metatarsalgia, right foot (ICD-10 - M77.41) 04/12/2025 Onychomycosis (ICD-10 - B35.1) 01/11/2025 Pain in right toe(s) (ICD-10 - M79.674) 01/11/2025 Pain in left toe(s) (ICD-10 - M79.675) 04/12/2025 Pain in right toe(s) (ICD-10 - M79.674) 01/11/2025 Right foot pain (ICD-10 - M79.671) 04/12/2025 Pain in left toe(s) (ICD-10 - M79.675) 01/11/2025 Pain in right ankle and joints of right foot (ICD-10 - M25.571) 04/12/2025 Right foot pain (ICD-10 - M79.671) 01/11/2025 Bursitis of intermetatarsal bursa of right foot (ICD-10 - M77.51) 04/12/2025 Pain in right ankle and joints of right foot (ICD-10 - M25.571) 04/12/2025 Bursitis of intermetatarsal bursa of right foot (ICD-10 - M77.51) 01/11/2025 Metatarsalgia, right foot (ICD-10 - M77.41) 01/11/2025 Hallux valgus (acquired), right foot (ICD-10 - M20.11) 04/12/2025 Hallux valgus (acquired), right foot (ICD-10 - M20.11) Plan Of Treatment Next Appt Details Provider Name:Silvia Mariee Danielle mariee, 09/20/2025 01:30:00 PM, [address] [place], [address], Insurance Providers Payer Name Payer Address Payer Phone Subscriber Number Group Number Insured Name Patient Relationship to Insured Coverage Start Date Coverage End Date [employer] Preferred [address] [place] [address] [id number] Morelia Le Self - patient is the insured 1 Medical (General) History Medical History History ICD Code Arthritis Back,Hip,and Knee pain covid-19 High Blood Pressure thyroid Measles Mumps Chicken pox Surgical History Surgery Date(Month/Year) Breast Surgery Hospitalization History Reason Date(Month/Year) ER - shoulder pain 11/27
--- NOTE | 2025-08-07 21:05 | PC.NURSE ---
pt reports intermittent pain for a few days, reports urine retention, pt feels distention. her son is at bedside states pt is downplaying her constant constipation. he says she has had a lot of constipation and he believes that is a big part of her pain.
[2025-08-07 21:22] LABS: MANUAL DIFF FLAG NO
[2025-08-07 21:25] LABS: Hematocrit 38.2 % (37.0-47.0); Hemoglobin 13.1 g/dl (12.0-16.0); Imm Gran Abs Auto 0.02 X10*3/uL (0.00-0.03); Imm Gran Pct Auto 0.3 % (0.0-0.4); Lymphocytes Absolute Auto 0.8 X10*3/uL (1.2-4.9); Mean Corpuscular HGB Conc 34.3 g/dl (31.0-35.0); Mean Corpuscular Hemoglobin 31.6 pg (27.0-33.0); Mean Corpuscular Volume 92.0 fL (80.0-98.0); NRBC Abs Auto 0.000 X10*3/uL (0.0-0.012); NRBC Pct Auto 0.0 /100WBC (0.0-0.2); Platelet Count 166 X10*3/uL (160-400); Red Blood Count 4.15 X10*6/uL (4.20-5.50); White Blood Count 6.9 X10*3/uL (4.8-10.8)
[2025-08-07 21:43] LABS: Alanine Aminotransferase 19 U/L (0-31); Albumin Level 4.3 g/dL (3.5-5.0); Alkaline Phosphatase 73 U/L (39-117); Anion Gap 12 (12-20); Aspartate Amino Transferase 24 U/L (5-31); Blood Urea Nitrogen 22 mg/dL (9-16); Calcium 9.1 mg/dL (8.4-10.2); Carbon Dioxide 23 mmol/L (22-29); Chloride 106 mmol/L (96-108); Creatinine Clr Calc Pharmacy 47.9; Estimated Glomerular Filt Rate > 60; Lipase 15 U/L (8-78); Magnesium 2.3 mg/dL (1.6-2.6); Potassium 4.0 mmol/L (3.3-5.1); Sodium 137 mmol/L (135-145); Total Protein 6.9 g/dL (6.5-8.0)
[2025-08-07 21:44] LABS: COVID-19 Test Negative (Negative); IDNOW Serial# 55D5AD1C; IDNOW Serial# 58CA691E; Influenza B2 Negative (Negative)
--- NOTE | 2025-08-07 23:46 | PC.NURSE ---
ultrasound guided IV placed by PA, pt fluids and medications started per JAN. pt awaiting CT scan
[2025-08-08] MEDS: iohexoL 350 MG/ML 100 ML INFUS..BTL 85 ML IV (00:02)
[2025-08-08 00:46] VITALS: TEMP 37
[2025-08-08 00:57] VITALS: BP 169/54; PULSE 67; RESP 16; TEMP 36.4; O2SAT 98
--- NOTE | 2025-08-08 01:00 | PC.NURSE ---
assisted pt onto bedside commode, urine sample sent down, IV fluids continues to run.
[2025-08-08 01:14] LABS: Appearance Urine Clear; Glucose Urine UA Negative (Negative); PH 6.0 (5.0-9.0); Specific Gravity - Urine >= 1.030 (1.005-1.025); UMIC TRIGGER UACC YES
[2025-08-08 02:04] VITALS: BP 169/54; PULSE 67; RESP 16; TEMP 36.4; O2SAT 98
== END 2025-08-08 02:09 | disposition home or self-care (01) ==
PROVIDERS: Physician Assistant; Emergency Provider Emergency Medicine; PCP Internal Medicine Nephrology
DX: K59.00 Constipation, unspecified (principal); R10.32 Left lower quadrant pain; R50.9 Fever, unspecified; R11.0 Nausea; Z79.899 Other long term (current) drug therapy; Z11.52 Encounter for screening for COVID-19
CPT/HCPCS: 74177; 80053; 81001; 83690; 83735; 85025; 87502; 87635; 96361; 96374; 96375; 99284; 99285; J0131; J2405; Q9967

== ENCOUNTER → 2025-08-07 22:18 | Outpatient (BNV) | payer MEDICARE, SELFPAY | PROVIDERS: Emergency Provider Emergency Medicine; PCP Internal Medicine Nephrology; Visit Provider Radiology Diagnostic Radiology | DX: R10.32 Left lower quadrant pain (principal) | CPT/HCPCS: 74177 ==